=== PATIENT | female | born 1950 | race Caucasian/White ===

== ENCOUNTER 2018-09-09 09:28 | Inpatient (IN) ==
[2018-09-09] MEDS ORDERED: 0.9 % SODIUM CHLORIDE 1,000 ML IV ONE ×3 (09:36→10:26)
--- NOTE | 2018-09-09 09:54 | Emergency Department Note ---
GI Bleed HPI - General Chief complaint: Rectal Bleed Stated complaint: Rectal bleed Time Seen by Provider: 09/09/18 09:42 Source: patient, family Mode of arrival: wheelchair Limitations: no limitations - History of Present Illness HPI Narrative: This patient has had some nausea vomiting for the last day and started having rectal bleeding about 5 AM this morning. She thought it was a lot she thought she felt dizzy and initial blood pressure in the emergency room was 67 systolic. However repeat is much higher than that. She has mild abdominal discomfort in the pelvic region. Has never had any GI bleeding or GI problems in the past. She is not on blood thinners. MD complaint: gross hematochezia Onset (ago): hour(s) Consistency: intermittent Severity: moderate Improves with: none Worsens with: none Associated symptoms: Reports: abdominal pain, nausea, vomiting Treatments Prior to Arrival: none - Related Data Home Medications Medication Instructions Recorded Confirmed albuterol sulfate HFA 90 2 inh INHALATION ONCE PRN g 07/28/17 09/09/18 mcg/actuation aerosol inhaler metronidazole 0.75 % topical cream 1 applic TOPICAL BID PRN 07/28/17 09/09/18 triamcinolone acetonide 0.1 % 1 applic TOPICAL ONCE PRN g 07/28/17 09/09/18 topical cream Previous Rx's Medication Instructions Recorded cyclobenzaprine 10 mg tablet 10 mg PO BID #180 tab 06/14/18 lisinopril 20 1 tab PO QDAY #90 tab 06/14/18 mg-hydrochlorothiazide 12.5 mg tablet metoprolol succinate ER 25 mg 25 mg PO QDAY #90 tab 06/14/18 tablet,extended release 24 hr omeprazole 20 mg capsule,delayed 20 mg PO QDAY #90 cap 06/14/18 release oxybutynin chloride 5 mg tablet 5 mg PO TID #270 tab 06/14/18 tramadol 50 mg tablet 50 mg PO QID PRN #112 tab 06/14/18 Allergies Allergy/AdvReac Type Severity Reaction Status Date / Time codeine Allergy Unknown Anaphylaxis Verified 09/09/18 09:28 morphine Allergy Unknown Anaphylaxis Verified 09/09/18 09:28 Penicillins Allergy Unknown Anaphylaxis Verified 09/09/18 09:28 Sulfa (Sulfonamide Allergy Unknown Diarrhea, Verified 09/09/18 09:28 Antibiotics) vomiting, itching Review of Systems All systems ED: reviewed and negative except as stated. Past Medical History - Past Medical History [facility] Narrative: Medical History (Last Reviewed 08/31/18 @ 10:16 by Fabienne Oquendo PA-C) Esophageal stricture (Chronic) Lumbar radicular pain (Chronic) Thyroid disease (Chronic ~1954) Joint pain (Chronic) Insomnia (Chronic ~1988) Hyperlipidemia (Chronic ~1995) Hypertension, essential (Chronic ~2008) Hepatitis A (Chronic ~1976) Gallbladder problem (Chronic ~2000) Muscle pain (Chronic ~1997) Lung disorder (Chronic ~2004) Arthritis (Chronic ~1999) Anxiety (Chronic) Acid reflux (Chronic ~2011) Past Surgical History (Last Reviewed 08/31/18 @ 10:16 by Fabienne Oquendo PA-C) H/O colonoscopy (Chronic ~2008) H/O total knee replacement (Chronic ~2004) History of cholecystectomy (Chronic ~2000) History of esophageal dilatation (Chronic 11/20/17) History of surgery (Chronic ~1987) Hx of tonsillectomy (Chronic ~1958) Family History (Last Reviewed 08/31/18 @ 10:16 by Fabienne Oquendo PA-C) Mother Arthritis Breast cancer Father Colon cancer Heart attack Grandfather Colon cancer - Social History smoking status: Former smoker Physical Exam Limitations: no limitations General appearance: alert Head: atraumatic Eye: Present: normal appearance ENT: normal exam Neck: Present: normal inspection Chest: Present: normal inspection Respiratory: Present: normal lung sounds bilaterally Cardiovascular: Present: regular rate, normal rhythm, normal heart sounds Abdominal: Present: soft, tenderness. Absent: distention, guarding, rebound, rigidity Abdominal tenderness: Present: diffuse, mild Rectal: Present: normal inspection, normal rectal tone, other (There was minimal blood on rectal exam. But it was bright red.) Neurological: Present: alert Psychiatric: Present: normal affect Skin: Present: warm, dry, intact Course Vital Signs Temperature 97.8 F 09/09/18 09:29 Pulse Rate 104 H 09/09/18 09:29 Respiratory Rate 20 09/09/18 09:29 Blood Pressure 67/55 09/09/18 09:29 Pulse Oximetry (%) 90 09/09/18 09:29 Temperature 97.8 F 09/09/18 09:29 Pulse Rate 95 H 09/09/18 12:16 Respiratory Rate 18 09/09/18 12:16 Blood Pressure 130/58 09/09/18 13:02 Pulse Oximetry (%) 100 09/09/18 12:16 GI Bleed - [facility] Narrative Medical decision making narrative: CT scan is consistent with segmental colitis in the descending and sigmoid colon. She was not anemic. She did have evidence of dehydration. Blood pressure came up into the 130 range after 3 L of fluid and remain there and she remained much more stable. We treated her with Levaquin and Flagyl and she will be admitted to the hospital by Dr. Sue. - Lab Data Lab results reviewed: Yes I reviewed the patient's lab results. Result diagrams: 09/09/18 09:47 09/09/18 09:47 Lab Results 09/09/18 09/09/18 09/09/18 Range/Units 09:47 09:47 12:07 WBC 26.6 H (4.5-11.0) K/mcL RBC 4.61 (4.00-5.20) M/mcL Hgb 12.8 (12.0-15.0) g/dL Hct 39.2 (36.0-48.0) % POC Hct 42.0 (36.0-48.0) % MCV 85.0 (80.0-100.0) fL MCH 27.8 (26.0-34.0) pg MCHC 32.7 (31.0-36.0) g/dL RDW 14.9 H (11.5-14.5) % Plt Count 263 (140-440) K/mcL MPV 7.1 L (7.4-10.4) fL Gran % 91.1 H (38.0-78.0) % Lymph % (Auto) 2.5 L (15.5-49.0) % [place] % (Auto) 6.4 (1.0-12.0) % Eos % (Auto) 0 (0.0-7.0) % Baso % (Auto) 0 (0.0-2.0) % Gran # 24.3 H (1.8-8.0) K/mcL Lymph # (Auto) 0.7 L (1.5-4.8) K/mcL [place] # (Auto) 1.7 H (0.1-0.9) K/mcL Eos # (Auto) 0 (0.0-0.7) K/mcL Baso # (Auto) 0 (0.0-0.3) K/mcL VBG Lactic Acid 2.5 H (0.5-2.0) mmol/L POC Sodium 136 (133-145) mmol/L Sodium 136 (133-145) mmol/L POC Potassium 4.3 (3.3-5.1) mmol/L Potassium 4.5 (3.3-5.1) mmol/L POC Chloride 105 (96-108) mmol/L Chloride 101 (96-108) mmol/L Carbon Dioxide 16 L (22-30) mmol/L POC Total CO2 18 L (22-30) mmol/L Anion Gap 19.0 H (8-16) POC BUN 34 H (8-23) mg/dl BUN 35 H (8-23) mg/dl Creatinine 2.1 H (0.6-1.1) mg/dl POC Creatinine 2.0 H (0.6-1.1) mg/dl GFR Calculation 24 Glucose 171 H (70-105) mg/dL POC Glucose 174 H (70-105) mg/dL Calcium 8.9 (8.6-10.4) mg/dl POC WB Ioniz Calcium 1.12 L (1.16-1.32) mmol/L Total Bilirubin 0.4 (0.0-1.0) mg/dL AST 22 (0-37) U/l ALT 16 (0-40) U/l Alkaline Phosphatase 99 (39-117) U/L Total Protein 7.0 (5.9-8.4) gm/dL Albumin 3.3 (3.2-5.2) gm/dL Globulin 3.7 (2.2-3.7) gm/dL Albumin/Globulin Ratio 0.9 L (1.0-2.3) - Radiology Data Radiology results reviewed: Yes I reviewed the patient's radiology results. Disposition Pt seen by [employer]/PA only: No Clinical Impression: Hematochezia, Colitis Disposition: Xfer As Inpt ([facility]) Condition: Good Referrals: Yovanny Hughes DO [Primary Care Provider] - Time of Disposition: 13:13
[2018-09-09 10:46] LABS: ALT/SGPT 16 U/l (0-40); Albumin 3.3 gm/dL (3.2-5.2); Albumin/Globulin Ratio 0.9 (1.0-2.3); Alkaline Phosphatase 99 U/L (39-117); Blood Urea Nitrogen 35 mg/dl (8-23)
[2018-09-09 11:01] LABS: Basophils # (Auto) 0 K/mcL (0.0-0.3); Basophils % (Auto) 0 % (0.0-2.0); Eosinophils # (Auto) 0 K/mcL (0.0-0.7); Eosinophils % (Auto) 0 % (0.0-7.0); Granulocytes % (Auto) 91.1 % (38.0-78.0); Lymphocytes # (Auto) 0.7 K/mcL (1.5-4.8); Lymphocytes % (Auto) 2.5 % (15.5-49.0); Mean Corpuscular HGB Conc 32.7 g/dL (31.0-36.0); Mean Corpuscular Hemoglobin 27.8 pg (26.0-34.0); Monocytes # (Auto) 1.7 K/mcL (0.1-0.9); Monocytes % (Auto) 6.4 % (1.0-12.0); Platelet Count 263 K/mcL (140-440); RBC 4.61 M/mcL (4.00-5.20); Red Cell Distribution Width 14.9 % (11.5-14.5)
[2018-09-09] MEDS ORDERED: ONDANSETRON 4 MG/2 ML VIAL IV ONE ×2 (11:24→12:41)
--- NOTE | 2018-09-09 12:39 | Cat Scan Report ---
CLINICAL INFORMATION: Rectal bleeding. Pain. COMPARISON: None. TECHNIQUE: Axial images were obtained through the abdomen and pelvis. Sagittally and coronally reformatted images. Patient's creatinine was elevated to 2.0 and intravenous contrast material was not administered FINDINGS: Distal descending colon and sigmoid colon are normal. There is pericolonic inflammatory change. The thickness of the colonic wall is not well assessed. R a few diverticuli. Findings may be due to diverticulitis but appearance suggests segmental colitis. The proximal descending colon, transverse colon, ascending colon are negative. There is no detectable colonic mass. No significant free intraperitoneal fluid. There is no intra-abdominal abscess. No pneumoperitoneum. No biliary or portal venous gas. Lung bases are negative. No parenchymal infiltrate or mass. No pleural fluid. No pericardial fluid. Liver is negative to the limits of noncontrast enhanced examination. Normal smooth liver contour. There are surgical clips in the gallbladder fossa. No dilated bile ducts. Negative spleen. No splenomegaly. Pancreas is negative. No pancreatic mass. No evidence of pancreatitis. Negative adrenal glands. There is probably a 6 mm fat-containing adenoma on the left adrenal gland. Kidneys are negative. No hydronephrosis. No renal calculi. No ureteral stone. No bladder calculus. Uterus is present. No adnexal mass. Lumbar spine, sacrum, pelvis are negative. Hips are negative. No retroperitoneal or mesenteric lymphadenopathy. There is calcification of the abdominal aorta. No abdominal aortic aneurysm. IMPRESSION: 1. Abnormal descending colon and sigmoid colon. There are scattered diverticula in this may be due to diverticulitis. Segmental colitis is also possible. 2. No detectable colonic mass. No intra-abdominal abscess. The exam was performed using radiation dose optimization techniques including, but not limited to, automated exposure control, adjustment of the mA and/or kV according to patient size and use of iterative reconstruction technique. Interpreted and Authenticated by: Yovanny Diaz 09/09/18
[2018-09-09] MEDS ORDERED: metroNIDAZOLE 500 MG/100 ML BAG IV ONE (12:41)
[2018-09-09] MEDS ORDERED: LEVOFLOXACIN 750 MG/150 ML BAG IV ONE (12:41)
[2018-09-09] MEDS ORDERED: 0.9 % SODIUM CHLORIDE 1,000 ML IV SCH (14:15)
[2018-09-09] MEDS: 0.9 % SODIUM CHLORIDE 1,000 ML IV SCH ×2 (14:30→23:06)
[2018-09-09] MEDS: PANTOPRAZOLE 40 MG VIAL IV SCH (15:56)
[2018-09-09] MEDS: metroNIDAZOLE 500 MG/100 ML BAG IV SCH ×3 (17:01→23:26)
--- NOTE | 2018-09-09 17:06 | General Surg History&Physical ---
History of Present Illness Patient information: Note initiated : 09/09/18 at 5:02 pm Service Date, if different from initiated Date: [] Patient: Sharla Villela a 68 y/o F admitted on 09/09/18 for Colitis. Chief Complaint: [] HPI: Ms. Villela is a 68 year old F admitted with nausea vomiting diarrhea and dehydration with possible sepsis. The patient states that her entire family which is an extended family of 6 has had nausea vomiting diarrhea. Her grandchildren and her daughter and son-in-law and her all have had nausea vomiting diarrhea. She did well until yesterday when she started to feel ill. She became much worse at work and had to return home. She had multiple episodes of nausea and vomiting and then had diarrhea which initially was regular stools and then became bloody. She estimates that she had at least 6 or 7 episodes of emesis and 10 bloody bowel movements. She was seen in the emergency room where she was noted to be hypotensive with blood pressure in the 60s to 80 range systolic.. She had mild tachycardia. She was treated with IV hydration and her blood pressure returned to normal levels. Her lactate was 2.6. Patient has not had similar episodes in the past. She has not had any GI problems that she can remember. CT suggests segmental inflammation of the descending and sigmoid colon suggestive of segmental colitis but this is probably infectious in origin. She had sharp crampy abdominal pain which is improving at this time. She has received 3 L of normal saline and her blood pressure and pulse are now stable. Review of Systems - Gastrointestinal abdominal pain, change in bowel habits, cramping, diarrhea, dysphagia, hematochezia, loose stools, nausea, vomiting - Musculoskeletal arthralgias, back pain, myalgias, other (joint pain with sciatica) Past History Past medical history: Hypothyroidism Asthma Hypertension Past surgical history: Right total hip arthroplasty in July 20 Bilateral total knee arthroplasty Right ankle surgery Bilateral hand surgeries including carpal tunnel release Past family history: Breast cancer Colon cancer Coronary artery disease Past social history: Occasional alcohol use Former smoker Denies drug use Medications and Allergies Home Medications Medication Instructions Recorded Confirmed Type albuterol sulfate HFA 90 2 inh INHALATION ONCE PRN g 07/28/17 09/09/18 History mcg/actuation aerosol inhaler metronidazole 0.75 % topical cream 1 applic TOPICAL BID PRN 07/28/17 09/09/18 History triamcinolone acetonide 0.1 % 1 applic TOPICAL ONCE PRN g 07/28/17 09/09/18 History topical cream cyclobenzaprine 10 mg tablet 10 mg PO BID #180 tab 06/14/18 09/09/18 Rx lisinopril 20 1 tab PO QDAY #90 tab 06/14/18 09/09/18 Rx mg-hydrochlorothiazide 12.5 mg tablet metoprolol succinate ER 25 mg 25 mg PO QDAY #90 tab 06/14/18 09/09/18 Rx tablet,extended release 24 hr omeprazole 20 mg capsule,delayed 20 mg PO QDAY #90 cap 06/14/18 09/09/18 Rx release oxybutynin chloride 5 mg tablet 5 mg PO TID #270 tab 06/14/18 09/09/18 Rx tramadol 50 mg tablet 50 mg PO QID PRN #112 tab 06/14/18 09/09/18 Rx Allergies Allergy/AdvReac Type Severity Reaction Status Date / Time codeine Allergy Unknown Anaphylaxis Verified 09/09/18 09:28 morphine Allergy Unknown Anaphylaxis Verified 09/09/18 09:28 Penicillins Allergy Unknown Anaphylaxis Verified 09/09/18 09:28 Sulfa (Sulfonamide Allergy Unknown Diarrhea, Verified 09/09/18 09:28 Antibiotics) vomiting, itching Exam Temp Pulse Resp BP Pulse Ox 97.8 F 86 18 108/59 94 09/09/18 14:25 09/09/18 14:25 09/09/18 14:25 09/09/18 14:25 09/09/18 14:25 - General physical appearance well developed, well nourished, no distress - Eyes PERRL, normal ocular movement - ENT normal pinna, normal nares, normal mucosa, no hearing loss, no congestion - Head Head exam IM: Present: atraumatic, normal inspection, normocephalic - Neck no masses, no bruits, trachea midline, no lymphadenopathy, no venous distension - Cardiovascular Cardiovascular exam IM: Present: normal rate and rhythm, RRR, +S1, +S2, systolic murmur. Absent: JVD, tachycardia Type of murmur IM: Present: systolic Intensity IM: 2/6 - Respiratory normal expansion, normal respiratory effort, clear to auscultation - Abdomen Abdomen: Present: soft, tender (diffusely tender without guarding; active bowel sounds; mild distention), bowel sounds Hernia: Present: none - Genitourinary Present: normal external genitalia - Integumentary Present: no rash, no growths, no abnormal pigmentation - Neurologic Present: normal coordination, normal sensation - Musculoskeletal Present: normal gait, normal posture, other (operative changes bilateral knees and right hip) - Psychiatric Present: oriented to time, oriented to person, oriented to place, speech is normal, memory intact Assessment and Plan (1) Acute infectious diarrhea Continue Levaquin and metronidazole IV Continue IV hydration Stool cultures for routine pathogens Stool tests for C. difficile Status: Acute (2) Hematochezia Monitor hemoglobin and hematocrit closely Status: Acute (3) Dehydration, moderate Continue IV hydration Follow-up evaluation of renal status Status: Acute (4) Hypertension, essential Hold antihypertensive medications Status: Chronic
[2018-09-09] MEDS ORDERED: ALBUTEROL SULFATE 1 PUFF INHALER INH PRN (17:17)
[2018-09-09 20:40] LABS: Basophils # (Auto) 0 K/mcL (0.0-0.3); Basophils % (Auto) 0 % (0.0-2.0); Eosinophils # (Auto) 0 K/mcL (0.0-0.7); Eosinophils % (Auto) 0 % (0.0-7.0); Granulocytes % (Auto) 89.5 % (38.0-78.0); Lymphocytes # (Auto) 0.8 K/mcL (1.5-4.8); Lymphocytes % (Auto) 4.7 % (15.5-49.0); Mean Cell Volume 85.1 fL (80.0-100.0); Mean Corpuscular HGB Conc 32.8 g/dL (31.0-36.0); Mean Corpuscular Hemoglobin 27.9 pg (26.0-34.0); Monocytes % (Auto) 5.8 % (1.0-12.0); Platelet Count 171 K/mcL (140-440); RBC 3.81 M/mcL (4.00-5.20)
[2018-09-09] MEDS: ONDANSETRON 4 MG/2 ML VIAL IV PRN (20:44)
[2018-09-09] MEDS: ACETAMINOPHEN 1,000 MG/100 ML BOTTLE IV PRN (20:45)
[2018-09-09 20:55] LABS: ALT/SGPT 13 U/l (0-40); Albumin 2.7 gm/dL (3.2-5.2); Albumin/Globulin Ratio 0.8 (1.0-2.3); Alkaline Phosphatase 90 U/L (39-117); Bilirubin,Direct < 0.2 mg/dL (0.0-0.3); Blood Urea Nitrogen 29 mg/dl (8-23); Gamma Glutamyl Transpeptidase 14 U/L (5-36); Uric Acid 7.8 mg/dL (2.5-8.0)
[2018-09-09] MEDS: 0.9 % SODIUM CHLORIDE 10 ML SYRINGE IV SCH (20:55)
[2018-09-10] MEDS: ONDANSETRON 4 MG/2 ML VIAL IV PRN ×6 (02:32→23:31)
[2018-09-10] MEDS: ACETAMINOPHEN 1,000 MG/100 ML BOTTLE IV PRN ×3 (02:33→19:48)
[2018-09-10] MEDS: metroNIDAZOLE 500 MG/100 ML BAG IV SCH ×4 (06:02→23:59)
[2018-09-10] MEDS: 0.9 % SODIUM CHLORIDE 10 ML SYRINGE IV SCH ×3 (06:03→23:31)
[2018-09-10] MEDS: PANTOPRAZOLE 40 MG VIAL IV SCH ×2 (06:51→17:19)
[2018-09-10 07:00] LABS: Basophils # (Auto) 0 K/mcL (0.0-0.3); Basophils % (Auto) 0 % (0.0-2.0); Eosinophils # (Auto) 0 K/mcL (0.0-0.7); Eosinophils % (Auto) 0.3 % (0.0-7.0); Granulocytes % (Auto) 85.4 % (38.0-78.0); Lymphocytes # (Auto) 0.9 K/mcL (1.5-4.8); Lymphocytes % (Auto) 7.1 % (15.5-49.0); Mean Cell Volume 85.9 fL (80.0-100.0); Mean Corpuscular HGB Conc 32.9 g/dL (31.0-36.0); Mean Corpuscular Hemoglobin 28.3 pg (26.0-34.0); Monocytes # (Auto) 0.9 K/mcL (0.1-0.9); Monocytes % (Auto) 7.2 % (1.0-12.0); Platelet Count 159 K/mcL (140-440); RBC 3.61 M/mcL (4.00-5.20)
[2018-09-10 07:24] LABS: ALT/SGPT 11 U/l (0-40); Albumin 2.6 gm/dL (3.2-5.2); Albumin/Globulin Ratio 0.9 (1.0-2.3); Alkaline Phosphatase 80 U/L (39-117); Bilirubin,Direct < 0.2 mg/dL (0.0-0.3); Blood Urea Nitrogen 26 mg/dl (8-23); Gamma Glutamyl Transpeptidase 10 U/L (5-36); Uric Acid 7.2 mg/dL (2.5-8.0)
[2018-09-10] MEDS: 0.9 % SODIUM CHLORIDE 1,000 ML IV SCH ×3 (08:17→17:09)
--- NOTE | 2018-09-10 15:48 | General Surgery Progress Note ---
Subjective Patient reports: feels better, pain is less, flatus, no bowel movement, nausea, afebrile Narrative: Note initiated : 09/10/18 at 3:46 pm Service Date, if different from initiated Date: [] Patient: Sharla Villela 68 y/o F admitted on 09/09/18 for Colitis. Chief Complaint: [Patient feels that she still has nausea. Her abdominal pain is significantly better. She's had some flatus but no significant bowel movement. She is afebrile. Her repeat lactate was 1. Her BUN is down to 26 and creatinine at 1.3. White blood count 12.6 hemoglobin 10.2. Patient complains of insomnia. Her urinary output is excellent.] Objective Temp Pulse Resp BP Pulse Ox 97.7 F 90 18 118/64 94 09/10/18 12:00 09/10/18 07:05 09/10/18 12:00 09/10/18 12:00 09/10/18 12:00 - Additional Data Intake & Output - Last 24 hours: Intake & Output 09/08/18 09/09/18 09/10/18 09/11/18 05:59 05:59 05:59 05:59 Intake Total 5680 / 5680 200 / 200 Output Total 1075 / 1075 Balance 4605 / 4605 200 / 200 Weight 289 lb 14.4 oz 289 lb 14.4 oz - General physical appearance well developed, well nourished, moderate distress, moderate pain - Eyes PERRL, normal ocular movement - ENT normal pinna, normal nares, normal mucosa, no hearing loss, no congestion - Neck no masses, no bruits, trachea midline, no lymphadenopathy, no venous distension - Respiratory normal expansion, normal respiratory effort, clear to auscultation - Cardiovascular Cardiovascular exam: Present: normal rate and rhythm, RRR, +S1, +S2. Absent: JVD, tachycardia - Abdomen tender (mild diffuse tenderness persists; active bowel sounds; less clotting than on yesterday), bowel sounds (present), surgical scars (none), masses (none) - Integumentary no rash, no growths, no abnormal pigmentation - Neurologic normal coordination, normal sensation - Musculoskeletal normal gait, normal posture - Psychiatric oriented to time, oriented to person, oriented to place, speech is normal, memory intact - Labs 09/10/18 05:42 09/10/18 05:42 Diabetes panel 09/09/18 09/10/18 Range/Units 20:00 05:42 Sodium 136 136 (133-145) mmol/L Potassium 4.4 4.2 (3.3-5.1) mmol/L Chloride 104 105 (96-108) mmol/L Carbon Dioxide 19 L 19 L (22-30) mmol/L BUN 29 H 26 H (8-23) mg/dl Creatinine 1.4 H 1.3 H (0.6-1.1) mg/dl Glucose 100 85 (70-105) mg/dL Calcium 8.3 L 8.3 L (8.6-10.4) mg/dl AST 19 15 (0-37) U/l ALT 13 11 (0-40) U/l Alkaline Phosphatase 90 80 (39-117) U/L Total Protein 6.0 5.6 L (5.9-8.4) gm/dL Albumin 2.7 L 2.6 L (3.2-5.2) gm/dL Triglycerides 83 66 (<150) mg/dl Calcium panel 09/09/18 09/10/18 Range/Units 20:00 05:42 Calcium 8.3 L 8.3 L (8.6-10.4) mg/dl Phosphorus 2.8 2.7 (2.7-4.5) mg/dL Albumin 2.7 L 2.6 L (3.2-5.2) gm/dL Pituitary panel 09/09/18 09/10/18 Range/Units 20:00 05:42 Sodium 136 136 (133-145) mmol/L Potassium 4.4 4.2 (3.3-5.1) mmol/L Chloride 104 105 (96-108) mmol/L Carbon Dioxide 19 L 19 L (22-30) mmol/L BUN 29 H 26 H (8-23) mg/dl Creatinine 1.4 H 1.3 H (0.6-1.1) mg/dl Glucose 100 85 (70-105) mg/dL Calcium 8.3 L 8.3 L (8.6-10.4) mg/dl Adrenal panel 09/09/18 09/10/18 Range/Units 20:00 05:42 Sodium 136 136 (133-145) mmol/L Potassium 4.4 4.2 (3.3-5.1) mmol/L Chloride 104 105 (96-108) mmol/L Carbon Dioxide 19 L 19 L (22-30) mmol/L BUN 29 H 26 H (8-23) mg/dl Creatinine 1.4 H 1.3 H (0.6-1.1) mg/dl Glucose 100 85 (70-105) mg/dL Calcium 8.3 L 8.3 L (8.6-10.4) mg/dl Total Bilirubin 0.4 0.3 (0.0-1.0) mg/dL AST 19 15 (0-37) U/l ALT 13 11 (0-40) U/l Alkaline Phosphatase 90 80 (39-117) U/L Total Protein 6.0 5.6 L (5.9-8.4) gm/dL Albumin 2.7 L 2.6 L (3.2-5.2) gm/dL Assessment and Plan (1) Acute infectious diarrhea Status: Acute Current Visit: Yes (2) Hematochezia Status: Acute Assessment and plan: Significantly improved since admission Current Visit: Yes (3) Dehydration, moderate Status: Acute Assessment and plan: Significant improvement with hydration Current Visit: Yes (4) Hypertension, essential Status: Chronic Assessment and plan: Continue to hold antihypertensives Current Visit: No - Time Spent With Patient Total time spent is greater than 50% in coordination of care (as documented) at patient's floor/unit and/or counseling patient:
[2018-09-10] MEDS: ALPRAZolam 0.5 MG TABLET PO PRN (20:18)
[2018-09-11] MEDS: ACETAMINOPHEN 1,000 MG/100 ML BOTTLE IV PRN ×2 (04:25→18:56)
[2018-09-11] MEDS: ONDANSETRON 4 MG/2 ML VIAL IV PRN ×2 (04:25→18:57)
[2018-09-11] MEDS: 0.9 % SODIUM CHLORIDE 1,000 ML IV SCH ×3 (05:45→20:51)
[2018-09-11] MEDS: 0.9 % SODIUM CHLORIDE 10 ML SYRINGE IV SCH ×3 (05:45→23:29)
[2018-09-11] MEDS: metroNIDAZOLE 500 MG/100 ML BAG IV SCH ×4 (05:45→23:58)
[2018-09-11 06:15] LABS: Basophils # (Auto) 0 K/mcL (0.0-0.3); Basophils % (Auto) 0.1 % (0.0-2.0); Eosinophils # (Auto) 0.1 K/mcL (0.0-0.7); Eosinophils % (Auto) 0.9 % (0.0-7.0); Granulocytes % (Auto) 89.1 % (38.0-78.0); Lymphocytes # (Auto) 0.8 K/mcL (1.5-4.8); Lymphocytes % (Auto) 5.5 % (15.5-49.0); Mean Cell Volume 86.8 fL (80.0-100.0); Mean Corpuscular HGB Conc 32.5 g/dL (31.0-36.0); Mean Corpuscular Hemoglobin 28.2 pg (26.0-34.0); Monocytes # (Auto) 0.6 K/mcL (0.1-0.9); Monocytes % (Auto) 4.4 % (1.0-12.0); Platelet Count 213 K/mcL (140-440); RBC 4.12 M/mcL (4.00-5.20); Red Cell Distribution Width 15.2 % (11.5-14.5)
[2018-09-11 06:29] LABS: ALT/SGPT 9 U/l (0-40); Albumin 2.5 gm/dL (3.2-5.2); Albumin/Globulin Ratio 0.8 (1.0-2.3); Alkaline Phosphatase 87 U/L (39-117); Bilirubin,Direct < 0.2 mg/dL (0.0-0.3); Blood Urea Nitrogen 20 mg/dl (8-23); Gamma Glutamyl Transpeptidase 11 U/L (5-36); Uric Acid 6.8 mg/dL (2.5-8.0)
[2018-09-11] MEDS: PANTOPRAZOLE 40 MG VIAL IV SCH ×2 (07:34→16:32)
[2018-09-11] MEDS: LEVOFLOXACIN 750 MG/150 ML BAG IV SCH (09:51)
--- NOTE | 2018-09-11 14:04 | General Surgery Progress Note ---
Subjective Patient reports: feels better, still having pain, pain is less, nausea, vomiting , afebrile Narrative: Note initiated : 09/11/18 at 2:02 pm Service Date, if different from initiated Date: [] Patient: Sharla Villela 68 y/o F admitted on 09/09/18 for Colitis. Chief Complaint: [Patient is doing well but she still has significant nausea. She has had some bloody bowel movements which are very small.] Objective Temp Pulse Resp BP Pulse Ox 98.9 F 99 H 20 114/77 97 09/11/18 12:00 09/11/18 08:00 09/11/18 12:00 09/11/18 12:00 09/11/18 12:00 - Additional Data Intake & Output - Last 24 hours: Intake & Output 09/09/18 09/10/18 09/11/18 09/12/18 05:59 05:59 05:59 05:59 Intake Total 5680 / 5680 2060 / 2060 100 / 100 Output Total 1075 / 1075 1155 / 1155 Balance 4605 / 4605 905 / 905 100 / 100 Weight 289 lb 14.4 oz 287 lb 8 oz - General physical appearance well developed, well nourished, no distress - Eyes PERRL, normal ocular movement - ENT normal pinna, normal nares, normal mucosa, no hearing loss, no congestion - Neck no masses, no bruits, trachea midline, no lymphadenopathy, no venous distension - Respiratory normal expansion, normal respiratory effort, clear to auscultation - Cardiovascular Cardiovascular exam: Present: normal rate and rhythm, RRR, +S1, +S2. Absent: JVD, tachycardia - Abdomen bowel sounds (present), surgical scars (none), masses (none) - Integumentary no rash, no growths, no abnormal pigmentation - Neurologic normal coordination, normal sensation - Musculoskeletal normal gait, normal posture - Psychiatric oriented to time, oriented to person, oriented to place, speech is normal, memory intact - Labs 09/11/18 04:42 09/11/18 04:42 Diabetes panel 09/11/18 Range/Units 04:42 Sodium 132 L (133-145) mmol/L Potassium 4.7 (3.3-5.1) mmol/L Chloride 102 (96-108) mmol/L Carbon Dioxide 16 L (22-30) mmol/L BUN 20 (8-23) mg/dl Creatinine 1.1 (0.6-1.1) mg/dl Glucose 78 (70-105) mg/dL Calcium 8.5 L (8.6-10.4) mg/dl AST 12 (0-37) U/l ALT 9 (0-40) U/l Alkaline Phosphatase 87 (39-117) U/L Total Protein 5.8 L (5.9-8.4) gm/dL Albumin 2.5 L (3.2-5.2) gm/dL Triglycerides 65 (<150) mg/dl Calcium panel 09/11/18 Range/Units 04:42 Calcium 8.5 L (8.6-10.4) mg/dl Phosphorus 2.6 L (2.7-4.5) mg/dL Albumin 2.5 L (3.2-5.2) gm/dL Pituitary panel 09/11/18 Range/Units 04:42 Sodium 132 L (133-145) mmol/L Potassium 4.7 (3.3-5.1) mmol/L Chloride 102 (96-108) mmol/L Carbon Dioxide 16 L (22-30) mmol/L BUN 20 (8-23) mg/dl Creatinine 1.1 (0.6-1.1) mg/dl Glucose 78 (70-105) mg/dL Calcium 8.5 L (8.6-10.4) mg/dl Adrenal panel 09/11/18 Range/Units 04:42 Sodium 132 L (133-145) mmol/L Potassium 4.7 (3.3-5.1) mmol/L Chloride 102 (96-108) mmol/L Carbon Dioxide 16 L (22-30) mmol/L BUN 20 (8-23) mg/dl Creatinine 1.1 (0.6-1.1) mg/dl Glucose 78 (70-105) mg/dL Calcium 8.5 L (8.6-10.4) mg/dl Total Bilirubin 0.2 (0.0-1.0) mg/dL AST 12 (0-37) U/l ALT 9 (0-40) U/l Alkaline Phosphatase 87 (39-117) U/L Total Protein 5.8 L (5.9-8.4) gm/dL Albumin 2.5 L (3.2-5.2) gm/dL Assessment and Plan (1) Acute infectious diarrhea Status: Acute Current Visit: Yes (2) Hematochezia Status: Acute Assessment and plan: Significantly improved since admission Current Visit: Yes (3) Dehydration, moderate Status: Acute Assessment and plan: Significant improvement with hydration Current Visit: Yes (4) Hypertension, essential Status: Chronic Assessment and plan: Continue to hold antihypertensives Current Visit: No - Time Spent With Patient Total time spent is greater than 50% in coordination of care (as documented) at patient's floor/unit and/or counseling patient:
[2018-09-11] MEDS: ALPRAZolam 0.5 MG TABLET PO PRN (21:22)
[2018-09-12] MEDS: ACETAMINOPHEN 1,000 MG/100 ML BOTTLE IV PRN (03:46)
[2018-09-12] MEDS: metroNIDAZOLE 500 MG/100 ML BAG IV SCH ×3 (05:07→17:37)
[2018-09-12 05:32] LABS: Basophils # (Auto) 0 K/mcL (0.0-0.3); Basophils % (Auto) 0.3 % (0.0-2.0); Eosinophils # (Auto) 0.2 K/mcL (0.0-0.7); Eosinophils % (Auto) 2.1 % (0.0-7.0); Granulocytes % (Auto) 80.9 % (38.0-78.0); Lymphocytes # (Auto) 0.8 K/mcL (1.5-4.8); Lymphocytes % (Auto) 10.2 % (15.5-49.0); Mean Cell Volume 86.1 fL (80.0-100.0); Mean Corpuscular HGB Conc 32.5 g/dL (31.0-36.0); Monocytes # (Auto) 0.5 K/mcL (0.1-0.9); Monocytes % (Auto) 6.5 % (1.0-12.0); Platelet Count 190 K/mcL (140-440); RBC 3.69 M/mcL (4.00-5.20); Red Cell Distribution Width 14.9 % (11.5-14.5)
[2018-09-12 05:49] LABS: ALT/SGPT 7 U/l (0-40); Albumin 2.2 gm/dL (3.2-5.2); Albumin/Globulin Ratio 0.8 (1.0-2.3); Alkaline Phosphatase 74 U/L (39-117); Bilirubin,Direct < 0.2 mg/dL (0.0-0.3); Blood Urea Nitrogen 17 mg/dl (8-23); Gamma Glutamyl Transpeptidase 11 U/L (5-36)
[2018-09-12] MEDS: PANTOPRAZOLE 40 MG VIAL IV SCH ×2 (06:46→17:32)
[2018-09-12] MEDS: 0.9 % SODIUM CHLORIDE 10 ML SYRINGE IV SCH ×3 (06:49→20:05)
[2018-09-12] MEDS: 0.9 % SODIUM CHLORIDE 1,000 ML IV SCH ×2 (08:32→17:44)
[2018-09-12] MEDS ORDERED: MAGNESIUM SULFATE 32.48 MEQ in DEXTROSE 5% IN WATER 50 ML IV ONE (14:09)
[2018-09-12] MEDS ORDERED: POTASSIUM PHOSPHATE 40 MEQ in DEXTROSE 5% IN WATER 500 ML IV ONE (14:10)
--- NOTE | 2018-09-12 14:14 | General Surgery Progress Note ---
Subjective Patient reports: feels better, still having pain, pain is less, flatus, no bowel movement, afebrile Narrative: Note initiated : 09/12/18 at 2:13 pm Service Date, if different from initiated Date: [] Patient: Sharla Villela 68 y/o F admitted on 09/09/18 for Colitis. Chief Complaint: [patient is improved. nausea significantly improved. She has flatus but no bowel movement. Abdominal pain better.] Objective Temp Pulse Resp BP Pulse Ox 98.2 F 88 14 128/89 94 09/12/18 12:00 09/12/18 12:00 09/12/18 12:00 09/12/18 12:00 09/12/18 12:00 - Additional Data Intake & Output - Last 24 hours: Intake & Output 09/10/18 09/11/18 09/12/18 09/13/18 05:59 05:59 05:59 05:59 Intake Total 5680 / 5680 2060 / 2060 3090 / 3090 100 / 100 Output Total 1075 / 1075 1155 / 1155 1100 / 1100 Balance 4605 / 4605 905 / 905 1989 / 1989 100 / 100 Weight 289 lb 14.4 oz 287 lb 8 oz 295 lb - General physical appearance well developed, well nourished, no distress - Eyes PERRL, normal ocular movement - ENT normal pinna, normal nares, normal mucosa, no hearing loss, no congestion - Neck no masses, no bruits, trachea midline, no lymphadenopathy, no venous distension - Respiratory normal expansion, normal respiratory effort, clear to auscultation - Cardiovascular Cardiovascular exam: Present: normal rate and rhythm, RRR, +S1, +S2. Absent: JVD, tachycardia - Abdomen tender (moderate upper midline abdominal tenderness; good active bowel sounds), distended ( mild distention of upper abdomen) - Integumentary no rash, no growths, no abnormal pigmentation - Neurologic normal coordination, normal sensation - Musculoskeletal normal gait, normal posture - Psychiatric oriented to time, oriented to person, oriented to place, speech is normal, memory intact - Labs 09/12/18 04:33 09/12/18 04:33 Diabetes panel 09/12/18 Range/Units 04:33 Sodium 137 (133-145) mmol/L Potassium 4.2 (3.3-5.1) mmol/L Chloride 106 (96-108) mmol/L Carbon Dioxide 19 L (22-30) mmol/L BUN 17 (8-23) mg/dl Creatinine 1.0 (0.6-1.1) mg/dl Glucose 63 L (70-105) mg/dL Calcium 8.0 L (8.6-10.4) mg/dl AST 8 (0-37) U/l ALT 7 (0-40) U/l Alkaline Phosphatase 74 (39-117) U/L Total Protein 5.1 L (5.9-8.4) gm/dL Albumin 2.2 L (3.2-5.2) gm/dL Triglycerides 90 (<150) mg/dl Calcium panel 09/12/18 Range/Units 04:33 Calcium 8.0 L (8.6-10.4) mg/dl Phosphorus 2.5 L (2.7-4.5) mg/dL Albumin 2.2 L (3.2-5.2) gm/dL Pituitary panel 09/12/18 Range/Units 04:33 Sodium 137 (133-145) mmol/L Potassium 4.2 (3.3-5.1) mmol/L Chloride 106 (96-108) mmol/L Carbon Dioxide 19 L (22-30) mmol/L BUN 17 (8-23) mg/dl Creatinine 1.0 (0.6-1.1) mg/dl Glucose 63 L (70-105) mg/dL Calcium 8.0 L (8.6-10.4) mg/dl Adrenal panel 09/12/18 Range/Units 04:33 Sodium 137 (133-145) mmol/L Potassium 4.2 (3.3-5.1) mmol/L Chloride 106 (96-108) mmol/L Carbon Dioxide 19 L (22-30) mmol/L BUN 17 (8-23) mg/dl Creatinine 1.0 (0.6-1.1) mg/dl Glucose 63 L (70-105) mg/dL Calcium 8.0 L (8.6-10.4) mg/dl Total Bilirubin < 0.2 (0.0-1.0) mg/dL AST 8 (0-37) U/l ALT 7 (0-40) U/l Alkaline Phosphatase 74 (39-117) U/L Total Protein 5.1 L (5.9-8.4) gm/dL Albumin 2.2 L (3.2-5.2) gm/dL Assessment and Plan (1) Acute infectious diarrhea Status: Acute Assessment and plan: Clinically improved; no stool for culture Start clear liquids Abdominal x-rays in the morning Replace magnesium and phosphorus Current Visit: Yes (2) Hematochezia Status: Acute Assessment and plan: Significantly improved since admission Current Visit: Yes (3) Dehydration, moderate Status: Resolved Assessment and plan: Dehydration resolved Current Visit: Yes (4) Hypertension, essential Status: Chronic Assessment and plan: Continue to hold antihypertensives Current Visit: No - Time Spent With Patient Total time spent is greater than 50% in coordination of care (as documented) at patient's floor/unit and/or counseling patient:
[2018-09-12] MEDS ORDERED: MAGNESIUM SULFATE IN WATER 4 GM/100 ML BAG IV ONE (14:30)
[2018-09-12] MEDS: ALPRAZolam 0.5 MG TABLET PO PRN (22:14)
[2018-09-13] MEDS: metroNIDAZOLE 500 MG/100 ML BAG IV SCH ×4 (01:05→17:21)
[2018-09-13] MEDS: 0.9 % SODIUM CHLORIDE 1,000 ML IV SCH ×3 (04:53→13:45)
[2018-09-13] MEDS: 0.9 % SODIUM CHLORIDE 10 ML SYRINGE IV SCH ×3 (04:56→21:00)
--- NOTE | 2018-09-13 08:29 | XRay Report ---
CLINICAL INFORMATION: Follow-up ileus TECHNIQUE: Supine and upright abdomen COMPARISON: CT scan dated 09/09/2018 FINDINGS: There is gas throughout small and large bowel. Transverse colon measures approximately 6 cm in maximum diameter. Small bowel is dilated to approximately 4 cm in cross-sectional diameter. There are scattered air-fluid levels. There is no pneumoperitoneum. No biliary or portal venous gas. No pneumatosis. Bowel gas pattern is not considered obstructive and is probably secondary to generalized ileus. Etiology of this ileus is not certain. Continued follow-up examinations recommended. IMPRESSION: 1. Distended gas-filled small and large bowel consistent with ileus 2. Follow-up examination recommended 3. No pneumoperitoneum. Interpreted and Authenticated by: Yovanny Diaz 09/13/18
[2018-09-13] MEDS: PANTOPRAZOLE 40 MG VIAL IV SCH ×2 (08:40→17:21)
[2018-09-13] MEDS: LEVOFLOXACIN 750 MG/150 ML BAG IV SCH (08:42)
[2018-09-13] MEDS: ONDANSETRON 4 MG/2 ML VIAL IV PRN (12:33)
[2018-09-13] MEDS ORDERED: IOPAMIDOL 100 ML BOTTLE IV ONE (12:54)
[2018-09-13 14:51] LABS: Basophils # (Auto) 0 K/mcL (0.0-0.3); Basophils % (Auto) 0 % (0.0-2.0); Eosinophils # (Auto) 0.2 K/mcL (0.0-0.7); Eosinophils % (Auto) 2.4 % (0.0-7.0); Granulocytes % (Auto) 79.8 % (38.0-78.0); Lymphocytes # (Auto) 0.7 K/mcL (1.5-4.8); Lymphocytes % (Auto) 9.5 % (15.5-49.0); Mean Cell Volume 84.9 fL (80.0-100.0); Mean Corpuscular HGB Conc 33.2 g/dL (31.0-36.0); Mean Corpuscular Hemoglobin 28.1 pg (26.0-34.0); Monocytes # (Auto) 0.6 K/mcL (0.1-0.9); Monocytes % (Auto) 8.3 % (1.0-12.0); Platelet Count 195 K/mcL (140-440); Red Cell Distribution Width 14.6 % (11.5-14.5)
[2018-09-13 15:25] LABS: ALT/SGPT 12 U/l (0-40); Albumin 2.7 gm/dL (3.2-5.2); Albumin/Globulin Ratio 0.8 (1.0-2.3); Alkaline Phosphatase 80 U/L (39-117); Bilirubin,Direct < 0.2 mg/dL (0.0-0.3); Blood Urea Nitrogen 9 mg/dl (8-23); Gamma Glutamyl Transpeptidase 19 U/L (5-36); Uric Acid 7.1 mg/dL (2.5-8.0)
--- NOTE | 2018-09-13 15:57 | General Surgery Progress Note ---
Subjective Patient reports: feels better, pain is less, tolerating liquids well, flatus, bowel movement, afebrile Narrative: Note initiated : 09/13/18 at 3:55 pm Service Date, if different from initiated Date: [] Patient: Sharla Villela 68 y/o F admitted on 09/09/18 for Colitis. Chief Complaint: [ppatient continues to improve. She is having multiple bowel movements but no bloody stools are noted. She did have some fecal incontinence last evening but is doing better today. She tolerated her liquids well.. White blood count 7.5; HEMOGLOBIN 11.8] Objective Temp Pulse Resp BP Pulse Ox 97.7 F 91 H 18 134/70 96 09/13/18 15:10 09/13/18 15:10 09/13/18 15:10 09/13/18 15:10 09/13/18 15:10 - Additional Data Intake & Output - Last 24 hours: Intake & Output 09/11/18 09/12/18 09/13/18 09/14/18 05:59 05:59 05:59 05:59 Intake Total 2060 / 2060 3090 / 3090 2500 / 2500 480 / 480 Output Total 1155 / 1155 1100 / 1100 1900 / 1900 550 / 550 Balance 905 / 905 1989 / 1989 600 / 600 -70 / -70 Weight 287 lb 8 oz 295 lb 289 lb 8 oz - General physical appearance well developed, well nourished, no distress, obese - Eyes PERRL, normal ocular movement - ENT normal pinna, normal nares, normal mucosa, no hearing loss, no congestion - Neck no masses, no bruits, trachea midline, no lymphadenopathy, no venous distension - Respiratory normal expansion, normal respiratory effort, clear to auscultation - Cardiovascular Cardiovascular exam: Present: normal rate and rhythm, RRR, +S1, +S2. Absent: JVD, tachycardia - Abdomen tender (tenderness in mid abdomen but softer than yesterday; good active) - Integumentary other ( rash in intertriginous areas about the same) - Neurologic normal coordination, normal sensation - Musculoskeletal normal gait, normal posture - Psychiatric oriented to time, oriented to person, oriented to place, speech is normal, memory intact - Labs 09/13/18 14:00 09/13/18 14:00 Diabetes panel 09/13/18 Range/Units 14:00 Sodium 135 (133-145) mmol/L Potassium 4.0 (3.3-5.1) mmol/L Chloride 100 (96-108) mmol/L Carbon Dioxide 21 L (22-30) mmol/L BUN 9 (8-23) mg/dl Creatinine 0.9 (0.6-1.1) mg/dl Glucose 95 (70-105) mg/dL Calcium 8.5 L (8.6-10.4) mg/dl AST 21 (0-37) U/l ALT 12 (0-40) U/l Alkaline Phosphatase 80 (39-117) U/L Total Protein 6.2 (5.9-8.4) gm/dL Albumin 2.7 L (3.2-5.2) gm/dL Triglycerides 245 H (<150) mg/dl Calcium panel 09/13/18 Range/Units 14:00 Calcium 8.5 L (8.6-10.4) mg/dl Phosphorus 2.6 L (2.7-4.5) mg/dL Albumin 2.7 L (3.2-5.2) gm/dL Pituitary panel 09/13/18 Range/Units 14:00 Sodium 135 (133-145) mmol/L Potassium 4.0 (3.3-5.1) mmol/L Chloride 100 (96-108) mmol/L Carbon Dioxide 21 L (22-30) mmol/L BUN 9 (8-23) mg/dl Creatinine 0.9 (0.6-1.1) mg/dl Glucose 95 (70-105) mg/dL Calcium 8.5 L (8.6-10.4) mg/dl Adrenal panel 09/13/18 Range/Units 14:00 Sodium 135 (133-145) mmol/L Potassium 4.0 (3.3-5.1) mmol/L Chloride 100 (96-108) mmol/L Carbon Dioxide 21 L (22-30) mmol/L BUN 9 (8-23) mg/dl Creatinine 0.9 (0.6-1.1) mg/dl Glucose 95 (70-105) mg/dL Calcium 8.5 L (8.6-10.4) mg/dl Total Bilirubin < 0.2 (0.0-1.0) mg/dL AST 21 (0-37) U/l ALT 12 (0-40) U/l Alkaline Phosphatase 80 (39-117) U/L Total Protein 6.2 (5.9-8.4) gm/dL Albumin 2.7 L (3.2-5.2) gm/dL Assessment and Plan (1) Acute infectious diarrhea Status: Acute Assessment and plan: Abdominal x-rays in the morning Replace magnesium and phosphorus Advance to regular diet Current Visit: Yes (2) Hematochezia Status: Resolved Assessment and plan: resolved Current Visit: Yes (3) Dehydration, moderate Status: Resolved Assessment and plan: Dehydration resolved Current Visit: Yes (4) Hypertension, essential Status: Chronic Assessment and plan: Continue to hold antihypertensives Current Visit: No - Time Spent With Patient Total time spent is greater than 50% in coordination of care (as documented) at patient's floor/unit and/or counseling patient:
[2018-09-13] MEDS ORDERED: POTASSIUM PHOSPHATE 40 MEQ in DEXTROSE 5% IN WATER 500 ML IV ONE (15:59)
--- NOTE | 2018-09-13 19:09 | Cat Scan Report ---
CLINICAL INFORMATION: Ileus. History of colitis. COMPARISON: Plain film examination dated 09/13/2018. Previous CT scan dated 09/09/2018 TECHNIQUE: Axial images were obtained through the abdomen and pelvis. Sagittally and coronally reformatted images. 90 mL contrast material injected intravenously. Oral contrast material was administered FINDINGS: There continues to be gas and fluid throughout small bowel. Small bowel is distended to 4 cm in cross-sectional diameter. The ascending, transverse, and proximal descending colons are prominent and gas filled. Sigmoid colon remains abnormal. There is loss of haustration. There is some straightening and wall thickening. There is pericolonic inflammatory change. Appearance remains most consistent with colitis. A definite discrete mass is not identified but neoplasm at the descending colon - sigmoid junction is not excluded. Colonoscopy is recommended if these abnormalities are persistent. There is increased free pelvic fluid. There is no localized fluid collection. No intra-abdominal abscess. No pneumoperitoneum. Left kidney is abnormal. There is a solid mass at the left upper pole. This measures 4.4 x 4.6 x 4.5 cm. This is consistent with renal cell carcinoma. No other solid mass. There is no hydronephrosis. There is no evidence for renal vein thrombosis. Negative liver. No focal intrahepatic abnormality. There are surgical clips in the gallbladder fossa. Common bile duct measures approximately 10 mm. No definite intrahepatic bile duct dilatation. Negative spleen. No splenomegaly. Normal enhancing splenic and portal veins Negative pancreas. No pancreatic mass. Negative adrenal glands. No lumbar compression fracture. No evidence for lumbar metastases. Sacrum and pelvis are negative. Previous right total hip biopsy plasty. Left hip is negative. Mild atherosclerotic calcification of the abdominal aorta. No abdominal aortic aneurysm. No retroperitoneal or mesenteric adenopathy. IMPRESSION: 1. Solid mass in the upper pole left kidney consistent with renal cell carcinoma 2. Persistent abnormality in the sigmoid colon. Findings remain most consistent with colitis. Underlying neoplasm is not excluded and if these findings do not resolve colonoscopy is recommended 3. Dilated gas and fluid-filled small bowel. Colon is prominent and gas filled to the level of the descending colon - sigmoid colon junction. The exam was performed using radiation dose optimization techniques including, but not limited to, automated exposure control, adjustment of the mA and/or kV according to patient size and use of iterative reconstruction technique. Interpreted and Authenticated by: Yovanny Diaz 09/13/18
[2018-09-13] MEDS: ALPRAZolam 0.5 MG TABLET PO PRN (21:07)
[2018-09-14] MEDS: metroNIDAZOLE 500 MG/100 ML BAG IV SCH ×3 (00:01→12:02)
[2018-09-14] MEDS: 0.9 % SODIUM CHLORIDE 10 ML SYRINGE IV SCH ×2 (05:26→14:55)
[2018-09-14] MEDS: 0.9 % SODIUM CHLORIDE 1,000 ML IV SCH ×3 (05:29→09:45)
[2018-09-14] MEDS: ONDANSETRON 4 MG/2 ML VIAL IV PRN (07:03)
[2018-09-14] MEDS: PANTOPRAZOLE 40 MG VIAL IV SCH (07:03)
[2018-09-14 07:08] LABS: Basophils # (Auto) 0 K/mcL (0.0-0.3); Basophils % (Auto) 0.4 % (0.0-2.0); Eosinophils # (Auto) 0.1 K/mcL (0.0-0.7); Eosinophils % (Auto) 1.6 % (0.0-7.0); Granulocytes % (Auto) 80.2 % (38.0-78.0); Lymphocytes # (Auto) 0.6 K/mcL (1.5-4.8); Lymphocytes % (Auto) 9.3 % (15.5-49.0); Mean Cell Volume 84.9 fL (80.0-100.0); Monocytes # (Auto) 0.6 K/mcL (0.1-0.9); Monocytes % (Auto) 8.5 % (1.0-12.0); Platelet Count 200 K/mcL (140-440); RBC 3.93 M/mcL (4.00-5.20); Red Cell Distribution Width 14.3 % (11.5-14.5)
[2018-09-14 09:07] LABS: ALT/SGPT 14 U/l (0-40); Albumin 2.6 gm/dL (3.2-5.2); Albumin/Globulin Ratio 0.9 (1.0-2.3); Alkaline Phosphatase 109 U/L (39-117); Bilirubin,Direct < 0.2 mg/dL (0.0-0.3); Blood Urea Nitrogen 6 mg/dl (8-23); Gamma Glutamyl Transpeptidase 20 U/L (5-36); Uric Acid 6.3 mg/dL (2.5-8.0)
--- NOTE | 2018-09-14 16:07 | Discharge Summary ---
Providers - Providers Patient information: Note initiated : 09/14/18 at 4:02 pm Service Date, if different from initiated Date: [] Patient: Sharla Villela 68 y/o F admitted on 09/09/18 for Colitis. Chief Complaint: [] Date of admission: 09/09/18 Discharge date: 09/14/18 Attending physician: Gabby Sue Hospitalization Hospital course: 68-year-old female admitted on 09 September with nausea vomiting diarrhea and dehydration. She states that her entire family of 6 had nausea vomiting and diarrhea. She was the last member to become ill. On the day prior to admission she felt nauseated and had multiple episodes of vomiting followed by diarrhea. She related developed 10 episodes of bloody bowel movements. She was seen in the emergency room with a blood pressure in the 60 systolic range with tachycardia. Her initial lactate was 2.6. With IV hydration her blood pressure increased and her tachycardia improved. CT suggests segmental inflammation of the descending and sigmoid colon probably infectious in origin. At the time of admission her blood pressure and pulse were stable. Patient was continued on IV hydration and Levaquin and Flagyl. Stool for C. difficile was negative. Routine stool cultures were never obtained because her bowel movements.. She continued to have bloody bowel movements for 3 days but has not had any bloody bowel movements for the past 36 hours. Her abdominal discomfort has resolved. She is having regular soft bowel movements at this time. She does have some problems with control and has had some incontinence. She feels well at this time and is stable enough for discharge home. She is advised to use Pepto-Bismol as needed to control her diarrheal stools. Discharge diagnosis: acute infectious diarrhea Secondary discharge diagnosis: Dehydration with hypotension Acute kidney injury Hematochezia Anemia due to acute blood loss Reason for admission: aacute infectious diarrhea with nausea vomiting and bloody diarrhea Procedures: None Pertinent studies/significant findings: CT of abdomen and pelvis without contrast Complications: None Exam Temp Pulse Resp BP Pulse Ox 98.1 F 83 18 113/65 96 09/14/18 12:00 09/14/18 12:00 09/14/18 12:00 09/14/18 12:00 09/14/18 12:00 - General physical appearance well developed, well nourished, no distress, obese - Eyes PERRL, normal ocular movement - ENT normal pinna, normal nares, normal mucosa, no hearing loss, no congestion - Head Head exam IM: Present: atraumatic, normocephalic - Neck no masses, no bruits, trachea midline, no lymphadenopathy, no venous distension - Cardiovascular Cardiovascular exam IM: Present: normal rate and rhythm, RRR, +S1, +S2. Absent : irregular rhythm, JVD, tachycardia - Respiratory normal expansion, normal respiratory effort, clear to percussion, clear to auscultation - Abdomen Abdomen: Present: soft, non tender, bowel sounds. Absent: tender Hernia: Present: none - Integumentary Present: no rash, no growths, no abnormal pigmentation - Neurologic Present: normal coordination, normal sensation - Musculoskeletal Present: normal gait, normal posture - Psychiatric Present: oriented to time, oriented to person, oriented to place, speech is normal, memory intact Discharge Plan - Patient/Caregiver Discharge Instructions Activity: increase activity as tolerated Diet: Regular Diet Additional Instructions: Discharge Instructions:use Pepto-Bismol as needed to control diarrhea Advance diet as tolerated Continue ciprofloxacin and Levaquin for 5 days Prescriptions: Ciprofloxacin [Cipro] 500 mg PO BID #10 tab metroNIDAZOLE [Flagyl] 500 mg PO Q8 #14 tab - Follow up Plan Follow up with: Yovanny Hughes DO [Primary Care Provider] - Disposition: Home, Self-Care Prognosis: Good Rehab Potential: Good I certify that the patient requires SNF services.: No Overall status at discharge: patient is not back to baseline (1) Pending Studies Resuscitation Status Full Code Diet Regular Diet Start ThuSep 13 155 Alprazolam (Xanax) 1 mg PO HSP PRN PRN Reason: Insomnia Last Admin: 09/13/18 21:07 Dose: 1 mg Admin: 09/12/18 22:14 Dose: 1 mg Admin: 09/11/18 21:22 Dose: 1 mg Admin: 09/10/18 20:18 Dose: 1 mg Levofloxacin (Levaquin) 750 mg in 150 mls @ 100 mls/hr IV Q48H ANTONIO Last Infusion: 09/13/18 10:12 Dose: 100 mls/hr Admin: 09/13/18 08:42 Dose: 100 mls/hr Infusion: 09/11/18 11:21 Dose: 100 mls/hr Admin: 09/11/18 09:51 Dose: 100 mls/hr Metronidazole (Flagyl) 500 mg in 100 mls @ 100 mls/hr IV Q6H ANTONIO Last Infusion: 09/14/18 13:16 Dose: 0 mls/hr Admin: 09/14/18 12:02 Dose: 100 mls/hr Infusion: 09/14/18 06:37 Dose: 0 mls/hr Admin: 09/14/18 05:29 Dose: 100 mls/hr Infusion: 09/14/18 01:01 Dose: 100 mls/hr Admin: 09/14/18 00:01 Dose: 100 mls/hr Infusion: 09/13/18 18:21 Dose: 100 mls/hr Admin: 09/13/18 17:21 Dose: 100 mls/hr Infusion: 09/13/18 14:34 Dose: 100 mls/hr Admin: 09/13/18 13:34 Dose: 100 mls/hr Infusion: 09/13/18 08:40 Dose: 100 mls/hr Admin: 09/13/18 05:20 Dose: 100 mls/hr Infusion: 09/13/18 02:05 Dose: 100 mls/hr Admin: 09/13/18 01:05 Dose: 100 mls/hr Infusion: 09/12/18 18:37 Dose: 100 mls/hr Admin: 09/12/18 17:37 Dose: 100 mls/hr Infusion: 09/12/18 15:39 Dose: 100 mls/hr Admin: 09/12/18 11:22 Dose: 100 mls/hr Infusion: 09/12/18 06:47 Dose: 100 mls/hr Admin: 09/12/18 05:07 Dose: 100 mls/hr Infusion: 09/12/18 01:00 Dose: 0 mls/hr Admin: 09/11/18 23:58 Dose: 100 mls/hr Infusion: 09/11/18 18:25 Dose: 0 mls/hr Admin: 09/11/18 17:20 Dose: 100 mls/hr Infusion: 09/11/18 12:26 Dose: 100 mls/hr Admin: 09/11/18 11:26 Dose: 100 mls/hr Infusion: 09/11/18 06:45 Dose: 100 mls/hr Admin: 09/11/18 05:45 Dose: 100 mls/hr Infusion: 09/11/18 01:00 Dose: 0 mls/hr Admin: 09/10/18 23:59 Dose: 100 mls/hr Infusion: 09/10/18 18:20 Dose: 0 mls/hr Admin: 09/10/18 17:19 Dose: 100 mls/hr Infusion: 09/10/18 15:57 Dose: 0 mls/hr Admin: 09/10/18 12:00 Dose: 100 mls/hr Infusion: 09/10/18 07:05 Dose: 0 mls/hr Admin: 09/10/18 06:02 Dose: 100 mls/hr Infusion: 09/10/18 00:26 Dose: 100 mls/hr Admin: 09/09/18 23:26 Dose: 100 mls/hr Infusion: 09/09/18 18:52 Dose: 100 mls/hr Admin: 09/09/18 17:52 Dose: 100 mls/hr Acetaminophen (Ofirmev) 1,000 mg in 100 mls @ 200 mls/hr IV Q6HP PRN PRN Reason: Pain Last Infusion: 09/12/18 05:06 Dose: 0 mls/hr Admin: 09/12/18 03:46 Dose: 200 mls/hr Infusion: 09/11/18 19:30 Dose: 0 mls/hr Admin: 09/11/18 18:56 Dose: 200 mls/hr Infusion: 09/11/18 04:55 Dose: 0 mls/hr Admin: 09/11/18 04:25 Dose: 200 mls/hr Infusion: 09/10/18 20:20 Dose: 0 mls/hr Admin: 09/10/18 19:48 Dose: 200 mls/hr Infusion: 09/10/18 12:01 Dose: 0 mls/hr Admin: 09/10/18 09:56 Dose: 200 mls/hr Infusion: 09/10/18 03:03 Dose: 0 mls/hr Admin: 09/10/18 02:33 Dose: 200 mls/hr Infusion: 09/09/18 23:07 Dose: 0 mls/hr Admin: 09/09/18 20:45 Dose: 200 mls/hr Sodium Chloride (Sodium Chloride 0.9%) 1,000 mls @ 100 mls/hr IV .Q10H ANTONIO Last Infusion: 09/14/18 15:43 Dose: 0 mls/hr Admin: 09/14/18 09:45 Dose: Not Given Admin: 09/14/18 05:29 Dose: 100 mls/hr Admin: 09/14/18 00:00 Dose: Not Given Infusion: 09/13/18 18:43 Dose: 100 mls/hr Admin: 09/13/18 13:45 Dose: Not Given Admin: 09/13/18 08:43 Dose: 100 mls/hr Admin: 09/13/18 04:53 Dose: Not Given Admin: 09/12/18 17:44 Dose: Not Given Admin: 09/12/18 08:32 Dose: Not Given Infusion: 09/12/18 06:51 Dose: 100 mls/hr Admin: 09/11/18 20:51 Dose: 100 mls/hr Infusion: 09/11/18 19:00 Dose: 0 mls/hr Admin: 09/11/18 14:20 Dose: Not Given Admin: 09/11/18 05:45 Dose: 100 mls/hr Infusion: 09/11/18 03:09 Dose: 100 mls/hr Admin: 09/10/18 17:09 Dose: 100 mls/hr Ondansetron HCl (Zofran) 4 mg IV Q4HP PRN PRN Reason: Nausea And Vomiting Last Admin: 09/14/18 07:03 Dose: 4 mg Admin: 09/13/18 12:33 Dose: 4 mg Admin: 09/11/18 18:57 Dose: 4 mg Admin: 09/11/18 04:25 Dose: 4 mg Admin: 09/10/18 23:31 Dose: 4 mg Admin: 09/10/18 19:48 Dose: 4 mg Admin: 09/10/18 15:56 Dose: 4 mg Admin: 09/10/18 12:01 Dose: 4 mg Admin: 09/10/18 06:51 Dose: 4 mg Admin: 09/10/18 02:32 Dose: 4 mg Admin: 09/09/18 20:44 Dose: 4 mg Pantoprazole Sodium (Protonix) 40 mg IV BIDAC ANTONIO Last Admin: 09/14/18 07:03 Dose: 40 mg Admin: 09/13/18 17:21 Dose: 40 mg Admin: 09/13/18 08:40 Dose: 40 mg Admin: 09/12/18 17:32 Dose: 40 mg Admin: 09/12/18 06:46 Dose: 40 mg Admin: 09/11/18 16:32 Dose: 40 mg Admin: 09/11/18 07:34 Dose: 40 mg Admin: 09/10/18 17:19 Dose: 40 mg Admin: 09/10/18 06:51 Dose: 40 mg Admin: 09/09/18 15:56 Dose: 40 mg Sodium Chloride (Saline Flush) 10 ml IV Q8 ANTONIO Last Admin: 09/14/18 14:55 Dose: Not Given Admin: 09/14/18 05:26 Dose: Not Given Admin: 09/13/18 21:00 Dose: Not Given Admin: 09/13/18 15:54 Dose: Not Given Admin: 09/13/18 04:56 Dose: Not Given Admin: 09/12/18 20:05 Dose: Not Given Admin: 09/12/18 15:38 Dose: Not Given Admin: 09/12/18 06:49 Dose: Not Given Admin: 09/11/18 23:29 Dose: Not Given Admin: 09/11/18 14:27 Dose: 10 ml Admin: 09/11/18 05:45 Dose: 10 ml Admin: 09/10/18 23:31 Dose: 10 ml Admin: 09/10/18 12:01 Dose: Not Given Admin: 09/10/18 06:03 Dose: 10 ml Admin: 09/09/18 20:55 Dose: 10 ml Shift Summary 09/14/18 04:30 Shift Summary by Pati Mathews Addendum entered by Pati Mathews R.N. 09/14/18 04:37: Will clamp levy at 0600 for bladder training. Need order to D/C levy Original Note: Pt had good night. One inc stool at beginning of shift and one stool in bathroom. No pain meds required this shift. Pt had regular dinner which she tolerated well. Cont to have excessive belching. Pt is hoping to go home today. SCD's got stool on them, if pt does not discharge please get a new pair. Will update with verbal report. Initialized on 09/14/18 04:30 - END OF NOTE
== END 2018-09-14 17:05 | disposition home or self-care (01) | DRG 392 ==
LOC: ED 09:28 → MEDSUR 14:16
PROVIDERS: ADMIT Family Medicine Adult Medicine; ATTEND Family Medicine Adult Medicine
CPT/HCPCS: 80047; 85014; 87324; 87449; A6250; J0131; J1956; J2405; J7030; J7060; Q9967

== ENCOUNTER 2018-12-02 07:08 | Inpatient (IN) ==
[2018-11-25 18:12] LABS: Basophils # (Auto) 0 K/mcL (0.0-0.3); Basophils % (Auto) 0.3 % (0.0-2.0); Eosinophils # (Auto) 0.2 K/mcL (0.0-0.7); Eosinophils % (Auto) 2.6 % (0.0-7.0); Granulocytes % (Auto) 66.8 % (38.0-78.0); Lymphocytes # (Auto) 1.5 K/mcL (1.5-4.8); Lymphocytes % (Auto) 21.4 % (15.5-49.0); Mean Cell Volume 83.7 fL (80.0-100.0); Mean Corpuscular HGB Conc 31.6 g/dL (31.0-36.0); Monocytes # (Auto) 0.6 K/mcL (0.1-0.9); Monocytes % (Auto) 8.9 % (1.0-12.0); Platelet Count 199 K/mcL (140-440); RBC 4.36 M/mcL (4.00-5.20); Red Cell Distribution Width 15.9 % (11.5-14.5)
[2018-11-25 18:28] LABS: ALT/SGPT 8 U/l (0-40); Albumin 3.5 gm/dL (3.2-5.2); Alkaline Phosphatase 93 U/L (39-117); Blood Urea Nitrogen 12 mg/dl (8-23)
[~2018-12-02 07:08] MED LIST: cefOXitin 2 GM VIAL IV SCH
[2018-12-02] MEDS ORDERED: LIDOCAINE HCL/PF 100 MG/5 ML SYRINGE IV ONE (11:30)
[2018-12-02] MEDS ORDERED: ONDANSETRON 4 MG/2 ML VIAL IV ONE (11:30)
[2018-12-02] MEDS ORDERED: fentaNYL 250 MCG/5 ML VIAL IV ONE (11:30)
[2018-12-02] MEDS ORDERED: TRANEXAMIC ACID 1,000 MG/10 ML VIAL IV ONE (11:30)
[2018-12-02] MEDS ORDERED: PROPOFOL 200 MG/20 ML VIAL IV ONE (11:30)
[2018-12-02] MEDS ORDERED: KETAMINE 100 MG/ML ML IV ONE (11:30)
[2018-12-02] MEDS ORDERED: PHENYLEPHRINE 10 MG/ML VIAL IV ONE (11:30)
[2018-12-02] MEDS ORDERED: GLYCOPYRROLATE 0.2 MG/ML VIAL IV ONE (11:30)
[2018-12-02] MEDS ORDERED: MIDAZOLAM 2 MG/2 ML VIAL IV ONE (11:30)
[2018-12-02] MEDS ORDERED: NEOSTIGMINE 1 MG/ML VIAL IV ONE (11:30)
[2018-12-02] MEDS ORDERED: ROCURONIUM 10 MG/ML ML IV ONE (11:30)
[2018-12-02] MEDS ORDERED: GELATIN SPONGE,ABSORBABLE 1 EACH SPONGE TOPICAL ONE (13:42)
[2018-12-02] MEDS ORDERED: PROMETHAZINE 25 MG/ML VIAL IM PRN (13:46)
[2018-12-02] MEDS ORDERED: IPRATROPIUM/ALBUTEROL 3 ML AMPUL.NEB NEB PRN (13:46)
[2018-12-02] MEDS ORDERED: ONDANSETRON 4 MG/2 ML VIAL IV PRN (13:46)
[2018-12-02] MEDS ORDERED: ACETAMINOPHEN 1,000 MG/100 ML BOTTLE IV ONE (13:46)
[2018-12-02] MEDS ORDERED: PROMETHAZINE 25 MG/ML VIAL IV PRN (13:46)
[2018-12-02] MEDS ORDERED: MEPERIDINE 50 MG/ML INJECTION IM PRN (13:46)
[2018-12-02] MEDS ORDERED: BUPIVACAINE W/EPI 0.25% 50 ML VIAL IJ ONE (13:54)
[2018-12-02] MEDS ORDERED: MAG HYDROX/AL HYDROX/SIMETH 30 ML ORAL.SUSP PO PRN (14:00)
[2018-12-02] MEDS ORDERED: LACTATED RINGERS 1,000 ML IV SCH (14:00)
[2018-12-02] MEDS ORDERED: MAGNESIUM HYDROXIDE 30 ML ORAL.SUSP PO PRN (14:00)
[2018-12-02] MEDS ORDERED: oxyCODONE/APAP 5/325MG TABLET PO PRN (14:00)
[2018-12-02] MEDS ORDERED: METRONIDAZOLE 0.75% TOPICAL PRN (14:04)
[2018-12-02] MEDS ORDERED: traMADol 50 MG TABLET PO PRN (14:04)
[2018-12-02] MEDS ORDERED: TRIAMCINOLONE CREAM 0.1% 15G 1 DOSE TUBE TOPICAL PRN (14:04)
[2018-12-02] MEDS ORDERED: HYDROmorphone PCA 30 MG/30 ML PCA.VIAL IV PRN (14:06)
--- NOTE | 2018-12-02 14:09 | Brief Operative Note ---
Date of procedure: 12/02/18 Pre-op diagnosis: left renal cell ca Post-op diagnosis: same Procedure: left radical nephrectomy Grafts/Implants: No Anesthesia: GETA Findings: see note Complications: none Surgeon: Vahid Holland Barrel Ribs Solderer: Gabby Sue Estimated blood loss (cc): 350 Specimens Removed/Pathology: other (left kidney) Condition: stable Disposition: PACU
[2018-12-02] MEDS ORDERED: ALBUTEROL SULFATE 1 PUFF INHALER INH PRN (14:10)
--- NOTE | 2018-12-02 14:37 | Operative Note ---
DATE OF OPERATION: 12/02/2018 PREOPERATIVE DIAGNOSIS: Left renal cell carcinoma. POSTOPERATIVE DIAGNOSIS: Left renal cell carcinoma PROCEDURE: Left radical nephrectomy. SURGEON: Vahid Holland MD INTELLIGENCE OFFICER: Gabby Sue MD INDICATION: The patient is a 66-year-old lady who was noted to have an incidental mass on the left kidney. Biopsy was performed which was consistent with renal cell carcinoma and she presents now for resection. PROCEDURE IN DETAIL: The patient was identified and consent was signed. She was given preoperative antibiotics, placed in supine position, and prepped and draped in standard fashion. Left subcostal incision was made and this was carried down to the fascia with electrocautery. The fascia was then opened and we were able to enter the abdominal cavity. Using the Bookwalter retractor, we were able to expose the white line of Toldt and this was taken down with electrocautery. We were then able to reposition the retractors and were able to identify Gerota's fascia. This was opened and we carefully dissected around the hilum. We were able to identify the ureter and this was clipped and cut and we were then able to see the renal vein. This was also clipped and cut, doubly ligated proximally. The renal artery was also found and this was also clipped and cut. We did find the gonadal vein and this was clipped and cut, also clipped and sewn. It should be noted there were two ties on the renal artery and vein. The adrenal vein was also tied off. We were then able to deliver the kidney with some difficulty because of the fat. The spleen was not injured. We irrigated the wound copiously and there was no bleeding. We did place Gelfoam and also Rafy to help control the bleeding. A drain was placed. We then were able to pack the abdominal contents back where they were supposed to be. We did a sponge count and this was correct. The wound was then closed with a #1 PDS in three layers and the subcutaneous fascia was closed with 0 chromic. Local anesthesia was instilled and the wound was copiously irrigated. We then closed with nicole. Sterile dressings were applied. The patient was awoken and taken to recovery room in stable condition. She tolerated the procedure well. Needle and sponge counts were correct. Estimated blood loss was 350 mL. EDMAR:dipak Job ID: [id number] Doc ID: [id number] Vahid Hollnad MD
[2018-12-02] MEDS: MEPERIDINE 25 MG/ML SYRINGE IV PRN ×2 (14:38→14:46)
[2018-12-02] MEDS: fentaNYL 100 MCG/2 ML VIAL IV PRN ×2 (14:54→15:03)
[2018-12-02] MEDS: DEXTROSE 5%-NS 1,000 ML IV SCH (16:00)
[2018-12-02] MEDS: 0.9 % SODIUM CHLORIDE 10 ML SYRINGE IV SCH ×2 (16:15→20:33)
[2018-12-02] MEDS: ACETAMINOPHEN 650 MG/65 ML BOTTLE IV SCH (17:30)
[2018-12-02] MEDS: OXYBUTYNIN CHLORIDE 5 MG TABLET PO SCH ×2 (17:32→20:32)
[2018-12-02] MEDS: CYCLOBENZAPRINE 10 MG TABLET PO SCH (20:32)
[2018-12-02] MEDS: cefOXitin 2 GM VIAL IV SCH (21:28)
[2018-12-02] MEDS ORDERED: LACTATED RINGERS 500 ML IV ONE (22:00)
[2018-12-02] MEDS: ONDANSETRON 4 MG/2 ML VIAL IV PRN (23:00)
[2018-12-03] MEDS ORDERED: ONDANSETRON 4 MG/2 ML VIAL ONE (02:18)
[2018-12-03] MEDS: ONDANSETRON 4 MG/2 ML VIAL IV PRN (03:00)
[2018-12-03] MEDS: DEXTROSE 5%-NS 1,000 ML IV SCH ×4 (03:35→17:38)
[2018-12-03] MEDS: cefOXitin 2 GM VIAL IV SCH (04:34)
[2018-12-03 05:28] LABS: Mean Cell Volume 82.8 fL (80.0-100.0); Mean Corpuscular HGB Conc 32.1 g/dL (31.0-36.0); Platelet Count 214 K/mcL (140-440); RBC 4.09 M/mcL (4.00-5.20); Red Cell Distribution Width 14.7 % (11.5-14.5)
[2018-12-03] MEDS: ACETAMINOPHEN 650 MG/65 ML BOTTLE IV SCH ×4 (05:46→17:24)
[2018-12-03] MEDS: 0.9 % SODIUM CHLORIDE 10 ML SYRINGE IV SCH ×3 (05:47→21:24)
[2018-12-03 05:53] LABS: Blood Urea Nitrogen 16 mg/dl (8-23)
--- NOTE | 2018-12-03 07:28 | General Surgery Progress Note ---
Subjective Patient reports: still having pain, no flatus, afebrile Narrative: Note initiated : 12/03/18 at 7:26 am Service Date, if different from initiated Date: [] Patient: Sharla Villela 68 y/o F admitted on 12/02/18 for Left Radical Nephrectomy. Chief Complaint: [] POD#1, patient without complaints. pain controlled with meds. labs look good. will transfer to floor. ambulate today Objective Temp Pulse Resp BP Pulse Ox 98.2 F 88 8 L 117/48 96 12/03/18 04:02 12/03/18 04:02 12/03/18 04:46 12/03/18 04:02 12/03/18 04:02 - Additional Data Intake & Output - Last 24 hours: Intake & Output 12/01/18 12/02/18 12/03/18 12/04/18 05:59 05:59 05:59 05:59 Intake Total 3790 65 Output Total 1375 Balance 2415 65 Weight 218 lb 4.8 oz - Labs 12/03/18 04:26 12/03/18 04:26 Diabetes panel 12/03/18 Range/Units 04:26 Sodium 137 (133-145) mmol/L Potassium 4.7 (3.3-5.1) mmol/L Chloride 104 (96-108) mmol/L Carbon Dioxide 24 (22-30) mmol/L BUN 16 (8-23) mg/dl Creatinine 1.4 H (0.6-1.1) mg/dl Glucose 153 H (70-105) mg/dL Calcium 8.5 L (8.6-10.4) mg/dl Calcium panel 12/03/18 Range/Units 04:26 Calcium 8.5 L (8.6-10.4) mg/dl Pituitary panel 12/03/18 Range/Units 04:26 Sodium 137 (133-145) mmol/L Potassium 4.7 (3.3-5.1) mmol/L Chloride 104 (96-108) mmol/L Carbon Dioxide 24 (22-30) mmol/L BUN 16 (8-23) mg/dl Creatinine 1.4 H (0.6-1.1) mg/dl Glucose 153 H (70-105) mg/dL Calcium 8.5 L (8.6-10.4) mg/dl Adrenal panel 12/03/18 Range/Units 04:26 Sodium 137 (133-145) mmol/L Potassium 4.7 (3.3-5.1) mmol/L Chloride 104 (96-108) mmol/L Carbon Dioxide 24 (22-30) mmol/L BUN 16 (8-23) mg/dl Creatinine 1.4 H (0.6-1.1) mg/dl Glucose 153 H (70-105) mg/dL Calcium 8.5 L (8.6-10.4) mg/dl Assessment and Plan - Time Spent With Patient Total time spent is greater than 50% in coordination of care (as documented) at patient's floor/unit and/or counseling patient:
[2018-12-03] MEDS ORDERED: OMEPRAZOLE 20 MG CAPSULE PO SCH (07:30)
[2018-12-03] MEDS ORDERED: traMADol 50 MG TABLET PO PRN (10:20)
[2018-12-03] MEDS ORDERED: ALBUTEROL SULFATE 1 PUFF INHALER INH PRN (10:20)
[2018-12-03] MEDS ORDERED: METRONIDAZOLE 0.75% TOPICAL PRN (10:20)
[2018-12-03] MEDS ORDERED: ONDANSETRON 4 MG/2 ML VIAL IV PRN (10:20)
[2018-12-03] MEDS ORDERED: MAG HYDROX/AL HYDROX/SIMETH 30 ML ORAL.SUSP PO PRN (10:20)
[2018-12-03] MEDS ORDERED: TRIAMCINOLONE CREAM 0.1% 15G 1 DOSE TUBE TOPICAL PRN (10:20)
[2018-12-03] MEDS ORDERED: HYDROmorphone PCA 30 MG/30 ML PCA.VIAL IV PRN (10:20)
[2018-12-03] MEDS: OXYBUTYNIN CHLORIDE 5 MG TABLET PO SCH ×3 (11:13→21:24)
[2018-12-03] MEDS ORDERED: cefOXitin 2 GM VIAL IV SCH (11:30)
[2018-12-03] MEDS: CYCLOBENZAPRINE 10 MG TABLET PO SCH ×3 (11:38→21:24)
[2018-12-03 12:36] LABS: Estimated Average Glucose(eAG) 100 mg/dL; Hemoglobin A1C 5.1 % HGB (4.0-6.0)
[2018-12-03] MEDS: oxyCODONE/APAP 5/325MG TABLET PO PRN ×2 (12:59→21:23)
[2018-12-04] MEDS: ACETAMINOPHEN 650 MG/65 ML BOTTLE IV SCH ×2 (00:17→06:02)
[2018-12-04] MEDS: DEXTROSE 5%-NS 1,000 ML IV SCH ×3 (01:32→18:02)
[2018-12-04] MEDS: 0.9 % SODIUM CHLORIDE 10 ML SYRINGE IV SCH ×3 (06:03→21:49)
[2018-12-04 07:31] LABS: Mean Cell Volume 83.9 fL (80.0-100.0); Mean Corpuscular HGB Conc 31.3 g/dL (31.0-36.0); Platelet Count 209 K/mcL (140-440); RBC 3.48 M/mcL (4.00-5.20); Red Cell Distribution Width 15.4 % (11.5-14.5)
[2018-12-04 08:10] LABS: BUN/Creatinine Ratio 10.6 (12-20); Blood Urea Nitrogen 17 mg/dl (8-23)
[2018-12-04] MEDS: OMEPRAZOLE 20 MG CAPSULE PO SCH (08:19)
[2018-12-04] MEDS: CYCLOBENZAPRINE 10 MG TABLET PO SCH ×2 (08:19→21:49)
[2018-12-04] MEDS: OXYBUTYNIN CHLORIDE 5 MG TABLET PO SCH ×3 (08:19→21:49)
[2018-12-04] MEDS: oxyCODONE/APAP 5/325MG TABLET PO PRN (08:19)
--- NOTE | 2018-12-04 09:24 | General Surgery Progress Note ---
Subjective Patient reports: pain is less, tolerating liquids well, no flatus, no bowel movement Narrative: Note initiated : 12/04/18 at 9:22 am Service Date, if different from initiated Date: [] Patient: Sharla Villela 68 y/o F admitted on 12/02/18 for Left Radical Nephrectomy. Chief Complaint: [] POD #2, patient complains of gas, no flatus, will ambulate and ducolax. levy and WILIAN removed. labs stable. wound is clean and dry. Objective Temp Pulse Resp BP Pulse Ox 97.4 F 89 17 109/59 97 12/04/18 08:00 12/04/18 04:00 12/04/18 08:00 12/04/18 08:00 12/04/18 08:00 - Additional Data Intake & Output - Last 24 hours: Intake & Output 12/02/18 12/03/18 12/04/18 12/05/18 05:59 05:59 05:59 05:59 Intake Total 3790 2840 65 Output Total 1375 980 270 Balance 2415 1860 -205 Weight 218 lb 4.8 oz 283 lb 8 oz - Labs 12/04/18 04:52 12/04/18 04:52 Diabetes panel 12/03/18 12/04/18 Range/Units 04:26 04:52 Sodium 136 (133-145) mmol/L Potassium 4.9 (3.3-5.1) mmol/L Chloride 106 (96-108) mmol/L Carbon Dioxide 18 L (22-30) mmol/L BUN 17 (8-23) mg/dl Creatinine 1.6 H (0.6-1.1) mg/dl Glucose 87 (70-105) mg/dL Hemoglobin A1c 5.1 (4.0-6.0) % HGB Calcium 8.1 L (8.6-10.4) mg/dl Calcium panel 12/04/18 Range/Units 04:52 Calcium 8.1 L (8.6-10.4) mg/dl Pituitary panel 12/04/18 Range/Units 04:52 Sodium 136 (133-145) mmol/L Potassium 4.9 (3.3-5.1) mmol/L Chloride 106 (96-108) mmol/L Carbon Dioxide 18 L (22-30) mmol/L BUN 17 (8-23) mg/dl Creatinine 1.6 H (0.6-1.1) mg/dl Glucose 87 (70-105) mg/dL Calcium 8.1 L (8.6-10.4) mg/dl Adrenal panel 12/04/18 Range/Units 04:52 Sodium 136 (133-145) mmol/L Potassium 4.9 (3.3-5.1) mmol/L Chloride 106 (96-108) mmol/L Carbon Dioxide 18 L (22-30) mmol/L BUN 17 (8-23) mg/dl Creatinine 1.6 H (0.6-1.1) mg/dl Glucose 87 (70-105) mg/dL Calcium 8.1 L (8.6-10.4) mg/dl Assessment and Plan - Time Spent With Patient Total time spent is greater than 50% in coordination of care (as documented) at patient's floor/unit and/or counseling patient:
[2018-12-04] MEDS: BISACODYL 10 MG SUPP.RECT PR SCH (10:07)
[2018-12-04] MEDS: oxyCODONE/APAP 10/325MG TABLET PO PRN ×2 (12:06→16:13)
[2018-12-05] MEDS: oxyCODONE/APAP 5/325MG TABLET PO PRN ×5 (01:43→22:20)
[2018-12-05] MEDS: DEXTROSE 5%-NS 1,000 ML IV SCH (03:35)
[2018-12-05] MEDS: 0.9 % SODIUM CHLORIDE 10 ML SYRINGE IV SCH ×3 (04:33→20:17)
[2018-12-05] MEDS: OMEPRAZOLE 20 MG CAPSULE PO SCH (07:46)
[2018-12-05] MEDS: OXYBUTYNIN CHLORIDE 5 MG TABLET PO SCH ×3 (07:46→20:17)
[2018-12-05] MEDS: BISACODYL 10 MG SUPP.RECT PR SCH (07:46)
[2018-12-05] MEDS: MAGNESIUM HYDROXIDE 30 ML ORAL.SUSP PO PRN (07:46)
[2018-12-05] MEDS: CYCLOBENZAPRINE 10 MG TABLET PO SCH ×2 (07:46→20:17)
--- NOTE | 2018-12-05 09:43 | General Surgery Progress Note ---
Subjective Patient reports: feels better, pain is less, bowel movement Narrative: Note initiated : 12/05/18 at 9:42 am Service Date, if different from initiated Date: [] Patient: Sharla Villela 68 y/o F admitted on 12/02/18 for Left Radical Nephrectomy. Chief Complaint: [] POD #3, patient doing well. pain controlled with meds. will advance diet ambulate today Objective Temp Pulse Resp BP Pulse Ox 98.2 F 90 18 110/59 91 12/05/18 06:50 12/05/18 03:41 12/05/18 07:49 12/05/18 06:50 12/05/18 06:50 - Additional Data Intake & Output - Last 24 hours: Intake & Output 12/03/18 12/04/18 12/05/18 12/06/18 05:59 05:59 05:59 05:59 Intake Total 3790 2840 3675 Output Total 1375 980 595 250 Balance 2415 1860 3080 -250 Weight 218 lb 4.8 oz 283 lb 8 oz 286 lb - Labs 12/04/18 04:52 12/04/18 04:52 Assessment and Plan - Time Spent With Patient Total time spent is greater than 50% in coordination of care (as documented) at patient's floor/unit and/or counseling patient:
[2018-12-06] MEDS: 0.9 % SODIUM CHLORIDE 10 ML SYRINGE IV SCH (04:53)
--- NOTE | 2018-12-06 07:12 | General Surgery Progress Note ---
Subjective Patient reports: feels better, tolerating a regular diet, voiding w/o difficulty, bowel movement Narrative: Note initiated : 12/06/18 at 7:10 am Service Date, if different from initiated Date: [] Patient: Sharla Villela 68 y/o F admitted on 12/02/18 for Left Radical Nephrectomy. Chief Complaint: [] POD #4 patient doing well. wound clean and dry w/o signs of infection. will d/c to home Objective Temp Pulse Resp BP Pulse Ox 98.5 F 83 18 103/58 95 12/06/18 06:37 12/06/18 03:54 12/06/18 06:37 12/06/18 06:37 12/06/18 06:37 - Additional Data Intake & Output - Last 24 hours: Intake & Output 12/04/18 12/05/18 12/06/18 12/07/18 05:59 05:59 05:59 05:59 Intake Total 2840 3675 2660 Output Total 980 595 750 500 Balance 1860 3080 1910 -500 Weight 283 lb 8 oz 286 lb 285 lb - Labs 12/04/18 04:52 12/04/18 04:52 Assessment and Plan - Time Spent With Patient Total time spent is greater than 50% in coordination of care (as documented) at patient's floor/unit and/or counseling patient:
--- NOTE | 2018-12-06 07:14 | Discharge Plan ---
Discharge Plan - Patient/Caregiver Discharge Instructions Activity: increase activity as tolerated Diet: Regular Diet Additional Instructions: no heavy lifting > 10 lbs - Follow up Plan Follow up with: Vahid Holland MD [Physician] - 12/17/18 10:30 am Disposition: Home, Self-Care Prognosis: Good Rehab Potential: Good
[2018-12-06] MEDS: OXYBUTYNIN CHLORIDE 5 MG TABLET PO SCH (08:03)
[2018-12-06] MEDS: OMEPRAZOLE 20 MG CAPSULE PO SCH (08:03)
[2018-12-06] MEDS: CYCLOBENZAPRINE 10 MG TABLET PO SCH (08:03)
[2018-12-06] MEDS: oxyCODONE/APAP 5/325MG TABLET PO PRN (08:03)
[2018-12-06] MEDS: MAGNESIUM HYDROXIDE 30 ML ORAL.SUSP PO PRN (08:03)
[2018-12-06] MEDS: BISACODYL 10 MG SUPP.RECT PR SCH (08:03)
--- NOTE | 2018-12-06 14:21 | Discharge Summary ---
DATE OF ADMISSION: 12/02/2018 DATE OF DISCHARGE: 12/06/2018 ADMISSION DIAGNOSIS: Left renal cell carcinoma. DISCHARGE DIAGNOSIS: Left renal cell carcinoma. PROCEDURE: Left radical nephrectomy. SURGEON: Vahid Holland MD INDICATIONS: The patient is a 68-year-old lady who was noted to have an incidental mass on the left kidney. Biopsy was performed which was consistent with renal cell carcinoma and she presents now for removal. HOSPITAL COURSE: For the rest of the history and physical, please see dictation. Postoperatively, she was observed in the ICU. Her hematocrit was stable and did drift down to 29, but was asymptomatic. She was advanced through her diet and is tolerating a regular diet. Her pain is being controlled with Percocet. She has had a bowel movement. The wound is clean and dry. PLAN: She was discharged to home and we will follow up for staple removal in 2 weeks and she is to resume all her preoperative medications. RZ:dipak Job ID: [id number] Doc ID: [id number] Vahid Holland MD
--- NOTE | 2018-12-07 13:20 | Surgical Pathology Report ---
HISTOLOGY SPECIMEN MICROSCOPIC DIAGNOSIS KIDNEY, LEFT, RADICAL NEPHRECTOMY: -- RENAL CELL CARCINOMA, CLEAR CELL TYPE, WITH THE FOLLOWING FEATURES: - TUMOR SIZE: 4.5 x 3.8 x 3.5 cm. - HISTOLOGIC GRADE: GRADE 3 OF 4. - TUMOR EXTENSION: TUMOR LIMITED TO KIDNEY. - TUMOR NECROSIS: PRESENT, APPROXIMATELY 30% OF TUMOR. - LYMPHOVASCULAR INVASION: NOT IDENTIFIED. - SURGICAL MARGINS: UNINVOLVED BY INVASIVE CARCINOMA. - PATHOLOGIC STAGE: pT1b NX. (RLF:adj) SUMMARY CANCER DATA Procedure: Radical nephrectomy. Specimen Laterality: Left. Tumor Site: Upper pole. Tumor Size: 4.5 x 3.8 x 3.5 cm. Tumor Focality: Unifocal. Histologic Type: Clear cell renal cell carcinoma. Sarcomatoid Features: Not identified. Rhabdoid Features: Not identified. Histologic Grade: Grade 3. Tumor Necrosis: Present, approximately 30% of tumor. Tumor Extension: Tumor limited to kidney. Margins: Uninvolved by invasive carcinoma. Lymphovascular Invasion: Not identified. Lymph Nodes: No lymph nodes submitted or found. Pathologic Stage: pT1b NX MX. PROCEDURAL IMPRESSION Renal cell carcinoma left upper pole of kidney. GROSS DESCRIPTION Received in formalin designated left kidney, is a 498 gram, 20 x 9.5 x 6.5 cm left radical nephrectomy specimen. The nephrectomy specimen has disrupted perinephric fat, which is mostly intact. The surgical margins are inked black. The vascular and ureteral margins are removed and submitted. The kidney itself measures 14 cm (s-i) x 6.5 cm (m-l) x 4.5 cm (a-p). The ureter is 4.3 cm long and up to 1.1 cm in diameter. The specimen is bivalved to reveal an upper pole well-circumscribed and grossly encapsulated raymond-pink lesion with areas of brown-black consistent with necrosis. Necrosis encompasses approximately 30% grossly. The mass measures 4.5 x 3.8 x 3.5 cm. Distance to margins: the mass measures approximately 1 cm to nearest hilar vessel, 2.5 cm to renal sinus and has a pushing border abutting the perinephric fat superiorly. No invasion of the renal hilum, renal sinus or extra-capsular invasion is identified. No hilar lymph nodes are identified. No adrenal gland is identified in the perinephric fat. Warp Dyeing Tender sections are submitted as follows: A1 - vascular and ureteral margins at the hilum; A2 - mass to renal cortex; A3 - mass to nearest approach of renal hilum; A4 - mass to perinephric fat; A5 - leather goods sales representative tumor to hilum; A6 - renal sinus; A7 - additional tumor with possible necrosis; A8 - cortex away from tumor. (EBD:nikko) Electronically Signed by: Kia Foster M.D.
== END 2018-12-06 10:12 | disposition home or self-care (01) | DRG 657 ==
LOC: ICU 07:08 → MEDSUR 12-03 13:51

== ENCOUNTER 2019-02-21 09:44 | Observation (INO) ==
--- NOTE | 2019-02-21 10:11 | Emergency Department Note ---
Neuro HPI - General Chief Complaint: Stroke Symptoms Stated Complaint: slurred speech Time Seen by Provider: 02/21/19 09:51 Source: patient Mode of arrival: wheelchair Limitations: no limitations - History of Present Illness HPI Narrative: This patient has had some intermittent neurological symptoms for the last 3 days. She appears to be okay at this moment. But she has had some intermittent right-sided weakness trouble swallowing speech difficulty. She has never had a stroke before. No history of cardiac disease she does have a history of hyper tension but actually her blood pressure has come down quite a bit and she stopped her lisinopril. She did recently have a nephrectomy for cancer and she thinks that they got all of her cancer. Despite that she has lost quite a bit of weight in the last 6 months. It is not entirely clear why. On Anticoagulants: No - Related Data Home Medications: Home Medications Medication Instructions Recorded Confirmed metronidazole 0.75 % topical cream 1 applic TOPICAL DAILYP PRN 07/28/17 02/21/19 triamcinolone acetonide 0.1 % 1 applic TOPICAL DAILYP PRN g 07/28/17 02/21/19 topical cream cholecalciferol (vitamin D3) 2,000 2,000 unit PO QDAY 12/24/18 02/21/19 unit capsule ferrous sulfate 325 mg (65 mg 325 mg PO QDAY tab 02/03/19 02/21/19 iron) tablet Vitamin B12 1,000 mcg PO DAILY 02/21/19 02/21/19 Previous Rx's Medication Instructions Recorded cyclobenzaprine 10 mg tablet 10 mg PO BID #180 tab 06/14/18 Oxybutynin Chloride [Ditropan] 5 mg PO TID tab 12/06/18 tramadol 50 mg tablet 50 mg PO QID PRN #112 tab 12/20/18 epinephrine 0.3 mg/0.3 mL 0.3 mg IM ONCE #2 each 12/21/18 injection, auto-injector leg brace See Dose Instructions .ROUTE 01/04/19 .MEDSUPPLY #1 each albuterol sulfate HFA 90 2 puff INHALATION Q6HP PRN #18 g 01/24/19 mcg/actuation aerosol inhaler ranitidine 150 mg capsule 150 mg PO QHS #90 cap 02/14/19 prednisone 20 mg tablet 40 mg PO ONCE 5 Days #10 tab MDD 02/16/19 40mg Allergies/Adverse Reactions: Allergies Allergy/AdvReac Type Severity Reaction Status Date / Time codeine Allergy Severe Anaphylaxis Verified 02/21/19 09:48 morphine Allergy Severe Anaphylaxis Verified 02/21/19 09:48 Penicillins Allergy Severe Anaphylaxis Verified 02/21/19 09:48 Sulfa (Sulfonamide AdvReac Mild Diarrhea, Verified 02/21/19 09:48 Antibiotics) vomiting, itching Review of Systems All systems ED: reviewed and negative except as stated. Past Medical History - Past Medical History [facility] Narrative: Medical History (Last Reviewed 02/03/19 @ 10:47 by Maria Esther Leiva MD) Neoplasm of left kidney (Chronic) Right hip pain (Chronic) Esophageal stricture (Chronic) Lumbar radicular pain (Chronic) Thyroid disease (Chronic ~1954) Joint pain (Chronic) Insomnia (Chronic ~1988) Hyperlipidemia (Chronic ~1995) Hypertension, essential (Chronic ~2008) Muscle pain (Chronic ~1997) Lung disorder (Chronic ~2004) Arthritis (Chronic ~1999) Anxiety (Chronic) Acid reflux (Chronic ~2011) Acute infectious diarrhea (Resolved) Colitis (Resolved) Dehydration, moderate (Resolved) Gallbladder problem (Resolved ~2000) Hematochezia (Resolved) Hepatitis A (Resolved ~1976) Past Surgical History (Last Reviewed 02/03/19 @ 10:47 by Maria Esther Leiva MD) History of left radical nephrectomy (Acute) H/O colonoscopy (Chronic ~2008) H/O total knee replacement (Chronic ~2004) History of cholecystectomy (Chronic ~2000) History of esophageal dilatation (Chronic 11/20/17) History of surgery (Chronic ~1987) Hx of tonsillectomy (Chronic ~1958) Family History (Last Reviewed 02/03/19 @ 10:47 by Maria Esther Leiva MD) Mother Arthritis Breast cancer Father Colon cancer Heart attack Grandfather Colon cancer - Social History smoking status: Former smoker Alcohol use: Reports: None Drug use: Reports: none Physical Exam Limitations: no limitations General appearance: alert Head: atraumatic, normocephalic Eye: Present: normal appearance ENT: normal exam Neck: Present: normal inspection Chest: Present: normal inspection Respiratory: Present: normal lung sounds bilaterally Cardiovascular: Present: regular rate, normal rhythm, normal heart sounds Abdominal: Present: soft. Absent: distention, tenderness Neurological: Present: alert Cranial nerves: facial palsy (VII): Normal Motor strength - LUE: 5/5 Motor strength - RUE: 5/5 Psychiatric: Present: normal affect Skin: Present: warm, dry Course Vital Signs Respiratory Rate 18 02/21/19 09:45 Pulse Oximetry (%) 99 02/21/19 09:45 Temperature 98.6 F 02/21/19 19:07 Pulse Rate 84 02/21/19 18:45 Respiratory Rate 18 02/21/19 19:07 Blood Pressure 148/72 02/21/19 19:07 Pulse Oximetry (%) 100 02/21/19 19:07 Neuro Symptoms/Deficit - MDM Narrative Medical decision making narrative: This patient appears to be having TIA symptoms for the last 3 days and will be admitted to the hospital by Dr. Henry. - Lab Data Lab results reviewed: Yes I reviewed the patient's lab results. Result diagrams: 02/21/19 10:03 02/21/19 10:03 Lab Results 02/21/19 02/21/19 02/21/19 Range/Units 10:03 10:03 10:03 WBC 10.0 (4.5-11.0) K/mcL RBC 4.67 (4.00-5.20) M/mcL Hgb 12.0 (12.0-15.0) g/dL Hct 37.8 (36.0-48.0) % POC Hct 38.0 (36.0-48.0) % MCV 81.1 (80.0-100.0) fL MCH 25.8 L (26.0-34.0) pg MCHC 31.8 (31.0-36.0) g/dL RDW 15.4 H (11.5-14.5) % Plt Count 161 (140-440) K/mcL MPV 7.8 (7.4-10.4) fL Gran % 69.6 (38.0-78.0) % Lymph % (Auto) 22.1 (15.5-49.0) % [place] % (Auto) 7.7 (1.0-12.0) % Eos % (Auto) 0.6 (0.0-7.0) % Baso % (Auto) 0 (0.0-2.0) % Gran # 7.0 (1.8-8.0) K/mcL Lymph # (Auto) 2.2 (1.5-4.8) K/mcL [place] # (Auto) 0.8 (0.1-0.9) K/mcL Eos # (Auto) 0.1 (0.0-0.7) K/mcL Baso # (Auto) 0 (0.0-0.3) K/mcL POC PT 11.4 L (11.9-14.5) sec POC INR 1.0 (0.9-1.2) APTT 26 (20-37) sec POC Sodium 140 (133-145) mmol/L Sodium 140 (133-145) mmol/L POC Potassium 3.9 (3.3-5.1) mmol/L Potassium 4.1 (3.3-5.1) mmol/L POC Chloride 105 (96-108) mmol/L Chloride 105 (96-108) mmol/L Carbon Dioxide 24 (22-30) mmol/L POC Total CO2 25 (22-30) mmol/L Anion Gap 11.0 (8-16) POC BUN 28 H (8-23) mg/dl BUN 27 H (8-23) mg/dl Creatinine 1.5 H (0.6-1.1) mg/dl POC Creatinine 1.6 H (0.6-1.1) mg/dl GFR Calculation 35 Glucose 78 (70-105) mg/dL POC Glucose 82 (70-105) mg/dL Hemoglobin A1c (4.0-6.0) % HGB Estim Average Glucose mg/dL Calcium 9.1 (8.6-10.4) mg/dl POC WB Ioniz Calcium 1.22 (1.16-1.32) mmol/L Total Bilirubin 0.2 (0.0-1.0) mg/dL AST 14 (0-37) U/l ALT 15 (0-40) U/l Alkaline Phosphatase 87 (39-117) U/L Troponin T (0-0.03) ng/ml Total Protein 7.5 (5.9-8.4) gm/dL Albumin 3.7 (3.2-5.2) gm/dL Globulin 3.8 H (2.2-3.7) gm/dL Albumin/Globulin Ratio 1.0 (1.0-2.3) Triglycerides (<150) mg/dl Cholesterol (<200) mg/dl LDL Cholesterol, Calc (SEE CHART) mg/dl Non-HDL Cholesterol (LDL TARGET+30) HDL Cholesterol (>40) mg/dl Urine Color Urine Appearance Urine pH (5.0-9.0) Ur Specific [place] (1.000-1.035) Urine Protein (NEG) mg/dL Urine Glucose (UA) (NEG) mg/dL Urine Ketones (NEG) mg/dL Urine Occult Blood (<0.03) mg/dL Urine Nitrate (NEG) Urine Bilirubin (NEG) mg/dL Urine Urobilinogen (NEG) mg/dL Ur Leukocyte Esterase (NEG) /uL Urine RBC (0-1) /hpf Urine WBC (0-4) /hpf Ur Squamous Epith Cells (0-4) /hpf Urine Bacteria (0) /hpf Ur Culture Indicated? 02/21/19 02/21/19 02/21/19 Range/Units 10:03 10:03 11:15 WBC (4.5-11.0) K/mcL RBC (4.00-5.20) M/mcL Hgb (12.0-15.0) g/dL Hct (36.0-48.0) % POC Hct (36.0-48.0) % MCV (80.0-100.0) fL MCH (26.0-34.0) pg MCHC (31.0-36.0) g/dL RDW (11.5-14.5) % Plt Count (140-440) K/mcL MPV (7.4-10.4) fL Gran % (38.0-78.0) % Lymph % (Auto) (15.5-49.0) % [place] % (Auto) (1.0-12.0) % Eos % (Auto) (0.0-7.0) % Baso % (Auto) (0.0-2.0) % Gran # (1.8-8.0) K/mcL Lymph # (Auto) (1.5-4.8) K/mcL [place] # (Auto) (0.1-0.9) K/mcL Eos # (Auto) (0.0-0.7) K/mcL Baso # (Auto) (0.0-0.3) K/mcL POC PT (11.9-14.5) sec POC INR (0.9-1.2) APTT (20-37) sec POC Sodium (133-145) mmol/L Sodium (133-145) mmol/L POC Potassium (3.3-5.1) mmol/L Potassium (3.3-5.1) mmol/L POC Chloride (96-108) mmol/L Chloride (96-108) mmol/L Carbon Dioxide (22-30) mmol/L POC Total CO2 (22-30) mmol/L Anion Gap (8-16) POC BUN (8-23) mg/dl BUN (8-23) mg/dl Creatinine (0.6-1.1) mg/dl POC Creatinine (0.6-1.1) mg/dl GFR Calculation Glucose (70-105) mg/dL POC Glucose (70-105) mg/dL Hemoglobin A1c 5.0 (4.0-6.0) % HGB Estim Average Glucose 97 mg/dL Calcium (8.6-10.4) mg/dl POC WB Ioniz Calcium (1.16-1.32) mmol/L Total Bilirubin (0.0-1.0) mg/dL AST (0-37) U/l ALT (0-40) U/l Alkaline Phosphatase (39-117) U/L Troponin T < 0.01 (0-0.03) ng/ml Total Protein (5.9-8.4) gm/dL Albumin (3.2-5.2) gm/dL Globulin (2.2-3.7) gm/dL Albumin/Globulin Ratio (1.0-2.3) Triglycerides 106 (<150) mg/dl Cholesterol 212 H (<200) mg/dl LDL Cholesterol, Calc 133 H (SEE CHART) mg/dl Non-HDL Cholesterol 154 H (LDL TARGET+30) HDL Cholesterol 58 (>40) mg/dl Urine Color Yellow Urine Appearance Clear Urine pH 5.0 (5.0-9.0) Ur Specific [place] 1.010 (1.000-1.035) Urine Protein Neg (NEG) mg/dL Urine Glucose (UA) Negative (NEG) mg/dL Urine Ketones Neg (NEG) mg/dL Urine Occult Blood 0.03 A (<0.03) mg/dL Urine Nitrate Neg (NEG) Urine Bilirubin Neg (NEG) mg/dL Urine Urobilinogen Neg (NEG) mg/dL Ur Leukocyte Esterase Neg (NEG) /uL Urine RBC < 1 (0-1) /hpf Urine WBC 3 (0-4) /hpf Ur Squamous Epith Cells < 1 (0-4) /hpf Urine Bacteria Mod A (0) /hpf Ur Culture Indicated? Yes 02/21/19 Range/Units 13:40 WBC (4.5-11.0) K/mcL RBC (4.00-5.20) M/mcL Hgb (12.0-15.0) g/dL Hct (36.0-48.0) % POC Hct 35.0 L (36.0-48.0) % MCV (80.0-100.0) fL MCH (26.0-34.0) pg MCHC (31.0-36.0) g/dL RDW (11.5-14.5) % Plt Count (140-440) K/mcL MPV (7.4-10.4) fL Gran % (38.0-78.0) % Lymph % (Auto) (15.5-49.0) % [place] % (Auto) (1.0-12.0) % Eos % (Auto) (0.0-7.0) % Baso % (Auto) (0.0-2.0) % Gran # (1.8-8.0) K/mcL Lymph # (Auto) (1.5-4.8) K/mcL [place] # (Auto) (0.1-0.9) K/mcL Eos # (Auto) (0.0-0.7) K/mcL Baso # (Auto) (0.0-0.3) K/mcL POC PT (11.9-14.5) sec POC INR (0.9-1.2) APTT (20-37) sec POC Sodium 140 (133-145) mmol/L Sodium (133-145) mmol/L POC Potassium 4.1 (3.3-5.1) mmol/L Potassium (3.3-5.1) mmol/L POC Chloride 107 (96-108) mmol/L Chloride (96-108) mmol/L Carbon Dioxide (22-30) mmol/L POC Total CO2 24 (22-30) mmol/L Anion Gap (8-16) POC BUN 27 H (8-23) mg/dl BUN (8-23) mg/dl Creatinine (0.6-1.1) mg/dl POC Creatinine 1.6 H (0.6-1.1) mg/dl GFR Calculation Glucose (70-105) mg/dL POC Glucose 85 (70-105) mg/dL Hemoglobin A1c (4.0-6.0) % HGB Estim Average Glucose mg/dL Calcium (8.6-10.4) mg/dl POC WB Ioniz Calcium 1.20 (1.16-1.32) mmol/L Total Bilirubin (0.0-1.0) mg/dL AST (0-37) U/l ALT (0-40) U/l Alkaline Phosphatase (39-117) U/L Troponin T (0-0.03) ng/ml Total Protein (5.9-8.4) gm/dL Albumin (3.2-5.2) gm/dL Globulin (2.2-3.7) gm/dL Albumin/Globulin Ratio (1.0-2.3) Triglycerides (<150) mg/dl Cholesterol (<200) mg/dl LDL Cholesterol, Calc (SEE CHART) mg/dl Non-HDL Cholesterol (LDL TARGET+30) HDL Cholesterol (>40) mg/dl Urine Color Urine Appearance Urine pH (5.0-9.0) Ur Specific [place] (1.000-1.035) Urine Protein (NEG) mg/dL Urine Glucose (UA) (NEG) mg/dL Urine Ketones (NEG) mg/dL Urine Occult Blood (<0.03) mg/dL Urine Nitrate (NEG) Urine Bilirubin (NEG) mg/dL Urine Urobilinogen (NEG) mg/dL Ur Leukocyte Esterase (NEG) /uL Urine RBC (0-1) /hpf Urine WBC (0-4) /hpf Ur Squamous Epith Cells (0-4) /hpf Urine Bacteria (0) /hpf Ur Culture Indicated? - Radiology Data Radiology results reviewed: Yes I reviewed the patient's radiology results. Disposition Pt seen by CLINICAL INSTRUCTOR/PA only: No Clinical Impression: TIA (transient ischemic attack) Disposition: Xfer As Outpt/Obs ([facility]) Condition: Fair
--- NOTE | 2019-02-21 10:15 | Cat Scan Report ---
History: Acute stroke symptoms with slurred speech, history of renal carcinoma TECHNIQUE: The brain was imaged without contrast at 2.5 mm intervals. FINDINGS: There are patchy areas of decreased attenuation in the centrum semiovale in the frontal and parietal lobes. There are physiologic calcifications in the globus pallidus bilaterally. No acute infarct is detected. There is no hemorrhage or mass effect. Mild frontal and temporal lobe atrophy are noted. The ventricles are normal in size. There is no abnormal extra-axial fluid collection. No metastasis are identified. IMPRESSION: Mild age-related degenerative changes and no acute abnormality is detected. Dr. Guevara was called with results Interpreted and Authenticated by: Dieter Trent 02/21/19
[2019-02-21] MEDS ORDERED: 0.9 % SODIUM CHLORIDE 1,000 ML IV ONE (10:23)
[2019-02-21] MEDS ORDERED: LACTATED RINGERS 1,000 ML IV ONE ×2 (10:23→12:07)
[2019-02-21 11:08] LABS: ALT/SGPT 15 U/l (0-40); Albumin 3.7 gm/dL (3.2-5.2); Alkaline Phosphatase 87 U/L (39-117); Blood Urea Nitrogen 27 mg/dl (8-23)
[2019-02-21 11:29] LABS: Basophils # (Auto) 0 K/mcL (0.0-0.3); Basophils % (Auto) 0 % (0.0-2.0); Eosinophils # (Auto) 0.1 K/mcL (0.0-0.7); Eosinophils % (Auto) 0.6 % (0.0-7.0); Granulocytes % (Auto) 69.6 % (38.0-78.0); Lymphocytes # (Auto) 2.2 K/mcL (1.5-4.8); Lymphocytes % (Auto) 22.1 % (15.5-49.0); Mean Cell Volume 81.1 fL (80.0-100.0); Mean Corpuscular HGB Conc 31.8 g/dL (31.0-36.0); Monocytes # (Auto) 0.8 K/mcL (0.1-0.9); Monocytes % (Auto) 7.7 % (1.0-12.0); Platelet Count 161 K/mcL (140-440); RBC 4.67 M/mcL (4.00-5.20); Red Cell Distribution Width 15.4 % (11.5-14.5)
[2019-02-21 12:04] LABS: Appearance,Urine CLEAR; Bacteria,Urine MOD /hpf (0); Bilirubin,Urine NEG (NEG); Color,Urine YELLOW; Glucose,Urine (UA) NEGATIVE (NEG); Leukocyte Esterase,Urine NEG /uL (NEG); Protein,Urine NEG (NEG); Urine Blood 0.03 mg/dL (<0.03); Urine RBC < 1 /hpf (0-1); Urine Squamous Epithelial Cell < 1 /hpf (0-4); Urine WBC 3 /hpf (0-4); Urobilinogen,Urine NEG (NEG)
[2019-02-21] MEDS ORDERED: LORazepam 2 MG/ML VIAL IV ONE (14:49)
--- NOTE | 2019-02-21 14:49 | Internal Med History&Physical ---
Medical - H&P: HPI Patient information: Note initiated : 02/21/19 at 2:42 pm Service Date, if different from initiated Date: [] Patient: Sharla Villela a 68 y/o F admitted on for slurred speech. Chief Complaint: [] History of present illness: Ms. Villela is a 68 year old F with h/o CKD, RCC s/p nephrectomy, presents to the ER today with complaints of dysphagia/ dysarthria. The patient notes that for the last 3 days she has been experiencing, difficulty in swallowing solid foods, this started on , is intermittent in nature, and she had to use water to get the food down, notes her tongue would not work. It can happen at any time, but thinks could be worse in the evening. Since the patient has noted that she also has dysarthria, finding that she is finding it difficult to talk for a long time, predominantly in the evening however can happen in the morning to depending on how long she talks. She does have a history of diplopia she feels perhaps slightly worse over the last 1 month. She has generalized weakness and altered body, admits to weakness with some activity, she has weakness in the left arm which she does not think is new she has had 3 surgeries done on that side, she denies any sensory loss, denies any focal weakness in her lower extremities. Denies any bowel bladder incontinence. Given the concern for possible TIA the patient was brought to the hospital for further management. On presenting to the hospital today the patient was hemodynamically stable, labs were stable, creatinine is 1.5 which is at baseline troponin negative UA is negative, head CT shows age-related degenerative changes no acute changes EKG is sinus rhythm left axis low voltage and incomplete right bundle branch block. The patient has been admitted to the hospital for further evaluation All systems: reviewed and no additional remarkable complaints except as stated (As per HPI rest negative) Medical - H&P: PMH Medical history: Medical History (Last Reviewed 02/03/19 @ 10:47 by Maria Esther Leiva MD) Neoplasm of left kidney (Chronic) Right hip pain (Chronic) Esophageal stricture (Chronic) Lumbar radicular pain (Chronic) Thyroid disease (Chronic ~1954) Joint pain (Chronic) Insomnia (Chronic ~1988) Hyperlipidemia (Chronic ~1995) Hypertension, essential (Chronic ~2008) Muscle pain (Chronic ~1997) Lung disorder (Chronic ~2004) Arthritis (Chronic ~1999) Anxiety (Chronic) Acid reflux (Chronic ~2011) Acute infectious diarrhea (Resolved) Colitis (Resolved) Dehydration, moderate (Resolved) Gallbladder problem (Resolved ~2000) Hematochezia (Resolved) Hepatitis A (Resolved ~1976) Surgical history: Past Surgical History (Last Reviewed 02/03/19 @ 10:47 by Maria Esther Leiva MD) History of left radical nephrectomy (Acute) H/O colonoscopy (Chronic ~2008) H/O total knee replacement (Chronic ~2004) History of cholecystectomy (Chronic ~2000) History of esophageal dilatation (Chronic 11/20/17) History of surgery (Chronic ~1987) Hx of tonsillectomy (Chronic ~1958) Pertinent family history: Family History (Last Reviewed 02/03/19 @ 10:47 by Maria Esther Leiva MD) Mother Arthritis Breast cancer Father Colon cancer Heart attack Grandfather Colon cancer Medical - H&P: Meds Home Medications Medication Instructions Recorded Confirmed Type metronidazole 0.75 % topical cream 1 applic TOPICAL DAILYP PRN 07/28/17 02/21/19 History triamcinolone acetonide 0.1 % 1 applic TOPICAL DAILYP PRN g 07/28/17 02/21/19 History topical cream cyclobenzaprine 10 mg tablet 10 mg PO BID #180 tab 06/14/18 02/21/19 Rx Oxybutynin Chloride [Ditropan] 5 mg PO TID tab 12/06/18 02/21/19 Rx tramadol 50 mg tablet 50 mg PO QID PRN #112 tab 12/20/18 02/21/19 Rx epinephrine 0.3 mg/0.3 mL 0.3 mg IM ONCE #2 each 12/21/18 02/21/19 Rx injection, auto-injector cholecalciferol (vitamin D3) 2,000 2,000 unit PO QDAY 12/24/18 02/21/19 History unit capsule leg brace See Dose Instructions .ROUTE 01/04/19 01/14/19 Rx .MEDSUPPLY #1 each albuterol sulfate HFA 90 2 puff INHALATION Q6HP PRN #18 g 01/24/19 02/21/19 Rx mcg/actuation aerosol inhaler ferrous sulfate 325 mg (65 mg 325 mg PO QDAY tab 02/03/19 02/21/19 History iron) tablet ranitidine 150 mg capsule 150 mg PO QHS #90 cap 02/14/19 02/21/19 Rx prednisone 20 mg tablet 40 mg PO ONCE 5 Days #10 tab MDD 02/16/19 02/21/19 Rx 40mg Allergies Allergy/AdvReac Type Severity Reaction Status Date / Time codeine Allergy Severe Anaphylaxis Verified 02/21/19 09:48 morphine Allergy Severe Anaphylaxis Verified 02/21/19 09:48 Penicillins Allergy Severe Anaphylaxis Verified 02/21/19 09:48 Sulfa (Sulfonamide AdvReac Mild Diarrhea, Verified 02/21/19 09:48 Antibiotics) vomiting, itching Medical - H&P: Exam - Constitutional Vitals: Pulse Resp BP Pulse Ox 77 14 142/66 99 02/21/19 14:26 02/21/19 14:26 02/21/19 14:26 02/21/19 14:26 Exam: GENERAL: The patient is a well-developed, well-nourished in no apparent distr ess. Is alert and oriented x3. VITAL SIGNS: Reviewed and as noted elsewhere. HEENT: Head is normocephalic and atraumatic. Extraocular muscles are intact. Pupils are equal, round, and reactive to light. Nares appeared normal. Mouth appears any without lesions. Mucous membranes are moist. NECK: Normal to inspection, Supple, No lymphadenopathy or thyromegaly. LUNGS: Air entry equal on both sides, no wheezing, crackles or rhonchi noted. No accessory muscles of respiration HEART: Regular rate and rhythm normal, S1 and S2 heard, no Gallop, S3 or Rub Noted, No Gross murmur heard. ABDOMEN: Soft, nontender, and nondistended. Positive bowel sounds. No hepatosplenomegaly was noted. EXTREMITIES: No cyanosis, clubbing, rash, lesions or edema. NEUROLOGIC: Cranial nerves II through XII are grossly intact. Pupils equally reactive to light, extraocular movements are normal, patient's tongue is midline, no appreciable weakness noted in her eyelids, I did not see any ptosis, her mouth was dry which made it difficult for her to talk according to her however there was no weakness cheek muscles or extraocular muscles. Her strength was 4 x 4 in bilateral upper extremities, and 4 x 4 in bilateral lower extremities, she had normal sensations all throughout her body to light touch, deep tendon reflexes were +1, Babinski was equivocal. PSYCHIATRIC: Normal affect, Normal Mood. Appropriate Behavior. SKIN: No ulceration or wounds noted, No jaundice, No rash noted. Medical - H&P: Reslt - Labs CBC & Chem 7: 02/21/19 10:03 02/21/19 10:03 Labs: Short CBC 02/21/19 Range/Units 10:03 WBC 10.0 (4.5-11.0) K/mcL Hgb 12.0 (12.0-15.0) g/dL Hct 37.8 (36.0-48.0) % Plt Count 161 (140-440) K/mcL BMP 02/21/19 10:03 Sodium 140 Potassium 4.1 Chloride 105 Carbon Dioxide 24 BUN 27 H Creatinine 1.5 H Glucose 78 Calcium 9.1 Cardiac Enzymes 02/21/19 Range/Units 10:03 Troponin T < 0.01 (0-0.03) ng/ml Liver Function 02/21/19 Range/Units 10:03 Total Bilirubin 0.2 (0.0-1.0) mg/dL AST 14 (0-37) U/l ALT 15 (0-40) U/l Alkaline Phosphatase 87 (39-117) U/L Albumin 3.7 (3.2-5.2) gm/dL Urine 02/21/19 Range/Units 11:15 Urine Color Yellow Urine Appearance Clear Urine pH 5.0 (5.0-9.0) Ur Specific [place] 1.010 (1.000-1.035) Urine Protein Neg (NEG) mg/dL Urine Glucose (UA) Negative (NEG) mg/dL Medical - H&P: A/P - Narrative A/P Narrative: A/P Dysarthria/TIA -Patient's clinical history is not clearly suggestive of a TIA like episode, or a strokelike episode. CT head is negative, we will get an MRI of the head, MRA of the head, ultrasound of the carotid arteries [patient has CKD with a creatinine of 1.6 and single kidney] and rule out any vascular etiology for the patient's symptoms. Start the patient on a baby aspirin as well as a statin drug. It is likely that the patient could be having symptoms either from a neuromuscular issue, or just significant dryness of her mouth. I will hold the oxybutynin for now I have also sent serology for myasthenia gravis. Patient will need to follow-up with her regular doctor and neurologist as an outpatient once workup for cva is done. There is no concern at this point for respiratory involvement or aspiration at this time, we will observe for this ([facility]) . Ocular involvement would point away from bulbar issue. I would like to review plan of care with a neurologist on the phone at least once the MRI is available Echocardiogram to be done, patient to be monitored on telemetry. CKD -Stable renal function, avoid nephrotoxic agents. MOrbid obesity, BMI 40 -outpatient management Arthritis -apap, tramadol for pain control HTN/HLD -resume home meds, add statin DVT hep sq Diet cardiac Social History - Social History marital status: other: Children-4 - Tobacco smoking status: Former smoker - Alcohol alcohol intake frequency: a few times a month - Substance use substance use type: does not use
[2019-02-21] MEDS ORDERED: LIDOCAINE 1% 20 ML VIAL SQ ONE (15:46)
[2019-02-21] MEDS ORDERED: ONDANSETRON 4 MG/2 ML VIAL IV PRN (16:05)
[2019-02-21] MEDS ORDERED: traMADol 50 MG TABLET PO PRN (16:05)
[2019-02-21] MEDS ORDERED: NALOXONE HCL 0.4 MG/ML VIAL IV PRN (16:05)
--- NOTE | 2019-02-21 16:14 | Magnetic Resonance Report ---
History: Transient ischemic attack with slurred speech and weakness TECHNIQUE: Intracranial arterial circulation was imaged using 3-D slab [id number]. 3-D reconstructions were created. FINDINGS: The internal carotid arteries are normal in caliber and symmetric. Vertebral arteries are also nearly symmetric and normal. The [place] is normal. The P1 segment of the right posterior cerebral artery is hypoplastic. There is a large patent right posterior communicating artery which supplies most of the blood flow to the distal portion of the right posterior cerebral. This is a developmental variant. Intracranial arterial circulation is otherwise normal. There is no evidence of thrombosis or stenosis. No aneurysm or vascular malformation are present IMPRESSION: Normal intracranial arterial circulation Dr. Henry was called with the results Interpreted and Authenticated by: Dieter Trent 02/21/19
--- NOTE | 2019-02-21 16:22 | Magnetic Resonance Report ---
CLINICAL INFORMATION: Transient ischemic attack with slurred speech and weakness COMPARISON: Head CT on 02/21/19 TECHNIQUE:Sagittal T1 FLAIR, axial T1 FLAIR, T2 FLAIR propeller, T2 propeller, gradient, diffusion, ADC and coronal T2 weighted images were acquired. FINDINGS: The T2 and FLAIR sequences reveal the presence of multiple small scattered high signal lesions in the white matter throughout the frontal and parietal lobes with milder involvement in the posterior temporal and occipital lobes. These have no mass effect or restricted diffusion. No cortical lesion is present and is also subtle mixed signal in the belly of the geoff which has no mass effect. The cerebellum is normal. Physiologic calcifications are present in the globus pallidus and pineal. There is mild generalized atrophy. There is no mass, intracranial hemorrhage or acute infarct. The ventricles are normal in size allowing for the atrophy. There is no abnormal extra-axial fluid collection. There is a moderate amount of fluid or inflammatory material within the left mastoid air cells. Minor bilateral ethmoid sinusitis is also seen. IMPRESSION: Age-related degenerative changes, predominantly involving the frontal and parietal lobes with milder involvement in the [place], occipital and temporal lobes. No infarct or acute intracranial abnormality Moderate left mastoiditis Dr. Hawkins was called with the results Interpreted and Authenticated by: Dieter Trent 02/21/19
[2019-02-21] MEDS: OXYBUTYNIN CHLORIDE 5 MG TABLET PO SCH ×2 (17:49→19:57)
[2019-02-21] MEDS: IPRATROPIUM/ALBUTEROL 3 ML AMPUL.NEB NEB SCH (18:46)
[2019-02-21] MEDS: ATORVASTATIN 20 MG TABLET PO SCH (19:56)
[2019-02-21] MEDS: HEPARIN 5,000 UNIT/ML VIAL SQ SCH (19:56)
[2019-02-21] MEDS: CYCLOBENZAPRINE 10 MG TABLET PO SCH (19:59)
[2019-02-21] MEDS: 0.9 % SODIUM CHLORIDE 10 ML SYRINGE IV SCH (22:00)
[2019-02-22] MEDS: IPRATROPIUM/ALBUTEROL 3 ML AMPUL.NEB NEB SCH ×2 (01:31→08:25)
[2019-02-22 05:58] LABS: Basophils # (Auto) 0 K/mcL (0.0-0.3); Basophils % (Auto) 0.3 % (0.0-2.0); Eosinophils # (Auto) 0 K/mcL (0.0-0.7); Eosinophils % (Auto) 0.2 % (0.0-7.0); Granulocytes % (Auto) 77.1 % (38.0-78.0); Lymphocytes # (Auto) 1.4 K/mcL (1.5-4.8); Lymphocytes % (Auto) 15.5 % (15.5-49.0); Mean Cell Volume 81.4 fL (80.0-100.0); Mean Corpuscular HGB Conc 31.9 g/dL (31.0-36.0); Monocytes # (Auto) 0.6 K/mcL (0.1-0.9); Monocytes % (Auto) 6.9 % (1.0-12.0); Platelet Count 209 K/mcL (140-440); RBC 4.09 M/mcL (4.00-5.20); Red Cell Distribution Width 15.6 % (11.5-14.5)
[2019-02-22] MEDS: 0.9 % SODIUM CHLORIDE 10 ML SYRINGE IV SCH ×3 (06:10→21:12)
[2019-02-22 06:31] LABS: ALT/SGPT 15 U/l (0-40); Albumin 3.2 gm/dL (3.2-5.2); Alkaline Phosphatase 76 U/L (39-117); Bilirubin,Direct < 0.2 mg/dL (0.0-0.3); Blood Urea Nitrogen 25 mg/dl (8-23); Gamma Glutamyl Transpeptidase 8 U/L (5-36); Uric Acid 6.2 mg/dL (2.5-8.0)
--- NOTE | 2019-02-22 07:44 | Ultrasound Report ---
CLINICAL INFORMATION: Transient ischemic attack with slurred speech COMPARISON: None. TECHNIQUE: Carotid arteries were imaged in sagittal and transverse planes using 5 mHz linear probe: Doppler, color, and 2D. FINDINGS: See worksheet by the technologist for velocities in PACS Please correlate with CTA CT Angiography or MRA MR Angiography if surgery is contemplated. There is small amount of mixed plaque in the carotid bifurcations bilaterally. Normal flow velocities are present in the common, internal and external carotids. There is no dissection or ulceration. Antegrade flow is present in both vertebral arteries. IMPRESSION: Mild atherosclerotic disease and no evidence of stenosis or vascular occlusion Interpreted and Authenticated by: Dieter Trent 02/22/19
[2019-02-22] MEDS ORDERED: IPRATROPIUM/ALBUTEROL 3 ML AMPUL.NEB NEB PRN (08:27)
[2019-02-22] MEDS: CYCLOBENZAPRINE 10 MG TABLET PO SCH ×2 (08:54→20:39)
[2019-02-22] MEDS: OXYBUTYNIN CHLORIDE 5 MG TABLET PO SCH ×3 (08:54→20:40)
[2019-02-22] MEDS: FERROUS SULFATE 325 MG TABLET PO SCH (08:54)
[2019-02-22] MEDS ORDERED: ASPIRIN 81 MG TAB.CHEW PO SCH (09:00)
--- NOTE | 2019-02-22 09:24 | Internal Med Progress Note ---
Medical - PN: Subj Patient information: Note initiated : 02/22/19 at 9:22 am Service Date, if different from initiated Date: [] Patient: Sharla Villela a 68 y/o F admitted on 02/21/19 for slurred speech. Chief Complaint: [] Interval history: Ms. Villela is a 68 year old F with h/o CKD, RCC s/p nephrectomy, presents to the ER today with complaints of dysphagia/ dysarthria. The patient notes that for the last 3 days she has been experiencing, difficulty in swallowing solid foods, this started on , is intermittent in nature, and she had to use water to get the food down, notes her tongue would not work. It can happen at any time, but thinks could be worse in the evening. Since the patient has noted that she also has dysarthria, finding that she is finding it difficult to talk for a long time, predominantly in the evening however can happen in the morning to depending on how long she talks. She does have a history of diplopia she feels perhaps slightly worse over the last 1 month. She has generalized weakness and altered body, admits to weakness with some activity, she has weakness in the left arm which she does not think is new she has had 3 surgeries done on that side, she denies any sensory loss, denies any focal weakness in her lower extremities. Denies any bowel bladder incontinence. Given the concern for possible TIA the patient was brought to the hospital for further management. On presenting to the hospital today the patient was hemodynamically stable, labs were stable, creatinine is 1.5 which is at baseline troponin negative UA is negative, head CT shows age-related degenerative changes no acute changes EKG is sinus rhythm left axis low voltage and incomplete right bundle branch block. The patient has been admitted to the hospital for further evaluation 02/22-patient clinically improved. Overnight improvement in facial numbness/swallowing/dysarthria. Denies bowel or bladder incontinence or lower extremity weakness. NIH score 1. MRI brain no evidence of acute CVA/tumor. Differential remains wide with pending tests including myasthenia. No history to suggest recent exposure to botulism, TSH /lumbar puncture studies to rule out MS. Continue telemetry monitoring. Likely discharge in 24 hours if continues to improve clinically with outpatient neurology follow-up - Constitutional Vitals: Vital Signs Temp Pulse Resp BP Pulse Ox 97.4 F 84 16 131/80 100 02/22/19 07:39 02/21/19 18:45 02/22/19 07:39 02/22/19 07:39 02/22/19 07:39 Period Temp Pulse Resp BP Sys/Grace Pulse Ox Last 24 Hr 97.4 F-98.6 F 70-84 13-20 131-165/55-94 95-100 Intake and Output 02/21/19 02/22/19 02/22/19 21:59 05:59 13:59 Intake Total 560 300 240 Output Total 600 250 125 Balance -40 50 115 Weight 270 lb 1 oz Intake & Output: Intake & Output 02/21/19 02/22/19 02/22/19 21:59 05:59 13:59 Intake Total 560 300 240 Output Total 600 250 125 Balance -40 50 115 Weight 270 lb 1 oz Intake: Oral 560 300 240 Output: Void Amount 600 250 125 Other: Meal Dinner Breakfast Percent of Meal Consumed 100% 75% Feeding Ability Independent Independent Urine Appearance Clear Clear Urine Color Bright Yellow Dark Yellow Urine Odor Normal Normal Stool Size Small Stool Color Black Stool Consistency Dry and Hard General appearance: no acute distress Exam: Alert oriented Nonlabored breathing Symmetrical strength and sensation Persistent dysarthria but improved since previous day Medical - PN: Obj Da - Labs CBC & Chem 7: 02/22/19 03:44 02/22/19 03:44 Labs: Abnormal Lab Results 02/22/19 02/22/19 02/21/19 03:44 03:44 13:40 Hgb 10.6 L Hct 33.3 L POC Hct 35.0 L MCH RDW 15.6 H Lymph # (Auto) 1.4 L POC PT POC BUN 27 H BUN 25 H Creatinine 1.4 H POC Creatinine 1.6 H Globulin Triglycerides 188 H Cholesterol LDL Cholesterol, Calc Non-HDL Cholesterol Urine Occult Blood Urine Bacteria 02/21/19 02/21/19 02/21/19 11:15 10:03 10:03 Hgb Hct POC Hct MCH RDW Lymph # (Auto) POC PT POC BUN 28 H BUN 27 H Creatinine 1.5 H POC Creatinine 1.6 H Globulin 3.8 H Triglycerides Cholesterol 212 H LDL Cholesterol, Calc 133 H Non-HDL Cholesterol 154 H Urine Occult Blood 0.03 A Urine Bacteria Mod A 02/21/19 02/21/19 10:03 10:03 Hgb Hct POC Hct MCH 25.8 L RDW 15.4 H Lymph # (Auto) POC PT 11.4 L POC BUN BUN Creatinine POC Creatinine Globulin Triglycerides Cholesterol LDL Cholesterol, Calc Non-HDL Cholesterol Urine Occult Blood Urine Bacteria Meds: Medications Acetaminophen (Tylenol) 650 mg PO Q6HP PRN PRN Reason: PAIN/FEVER > 101 Albuterol/Ipratropium (Duoneb) 3 ml NEB Q6HP PRN PRN Reason: Shortness Of Breath Or Wheezing Aspirin (Ecotrin) 325 mg PO DAILY [facility] Atorvastatin Calcium (Lipitor) 40 mg PO HS [facility] Last Admin: 02/21/19 19:56 Dose: 40 mg Documented by: Cyclobenzaprine HCl (Flexeril) 10 mg PO BID [facility] Last Admin: 02/22/19 08:54 Dose: 10 mg Documented by: Ferrous Sulfate (Ferrous Sulfate) 325 mg PO QDAY [facility] Last Admin: 02/22/19 08:54 Dose: 325 mg Documented by: Heparin Sodium (Porcine) (Heparin) 5,000 unit SQ Q12 [facility] Last Admin: 02/21/19 19:56 Dose: 5,000 unit Documented by: Naloxone HCl (Narcan) 0.1 mg IV Q2MIN PRN PRN Reason: Opiate Reversal Ondansetron HCl (Zofran) 4 mg IV Q4HP PRN PRN Reason: Nausea And Vomiting Oxybutynin Chloride (Ditropan) 5 mg PO TID [facility] Last Admin: 02/22/19 08:54 Dose: 5 mg Documented by: Sodium Chloride (Saline Flush) 10 ml IV Q8 [facility] Last Admin: 02/22/19 06:10 Dose: 10 ml Documented by: Tramadol HCl (Ultram) 50 mg PO QIDP PRN PRN Reason: pain (scale score 4-6) Medical - PN: A/P - Time Spent With Patient Total time spent is greater than 50% in coordination of care (as documented) at patient's floor/unit and/or counseling patient: 25 - 35 minutes (1) Dysarthria Status: Acute Assessment and plan: * Acute onset dysarthria-negative MRI for CVA/mass lesion. Await TSH/lumbar puncture studies/myasthenia serology. * Question TIA continue aspirin 325 mg * History of CAD stable * Morbid obesity with BMI of 40 * History of degenerative joint disease continue tramadol * History of hypertension-restart home meds * Hyperlipidemia continue atorvastatin * DVT prophylaxis heparin * Full code Plan * Await TSH/myasthenia serology/lumbar puncture studies * Aspirin and statin * Neuro follow-up as outpatient Current Visit: Yes Medical - PN: Qual - Stroke Symptom Onset Unknown: Yes - VTE Deep Vein Thrombosis/Pulmonary Embolism Present on Admission: No
[2019-02-22] MEDS: ASPIRIN 325 MG ENTERIC COATED TABLET PO SCH (10:48)
[2019-02-22] MEDS: HEPARIN 5,000 UNIT/ML VIAL SQ SCH ×3 (10:48→20:39)
--- NOTE | 2019-02-22 10:51 | XRay Report ---
HISTORY: New onset slurred speech and difficulty swallowing, evaluate for multiple sclerosis FINDINGS: The procedure and risks were explained and the patient consented. The patient lying prone, skin over the lower back was prepped with Betadine and then anesthetized with 1% lidocaine. Using fluoroscopic guidance a 22-gauge needle was inserted into the spinal canal at the L2-3 level. The opening pressure was 2 cm CSF. 17 cc of clear CSF was removed and sent to the laboratory for analysis. She tolerated the procedure well without complication. 43 seconds of fluoroscopy time was used. IMPRESSION: Successful lumbar puncture removing 17 cc of CSF for analysis. Interpreted and Authenticated by: Dieter Trent 02/22/19
[2019-02-22 12:05] LABS: Glucose,CSF 52 mg/dL (45-75)
[2019-02-22 12:56] LABS: Appearance,CSF CLEAR; Nucleated Cells,CSF 3 /cumm (0-5); Red Blood Cell,CSF 15 /cumm (0-1)
[2019-02-22 13:20] LABS: Lymphocytes,CSF 100 % (40-80); Total Cell Ct,CSF 13
[2019-02-22 14:40] LABS: Appearance,CSF CLEAR; Nucleated Cells,CSF 4 /cumm (0-5); Red Blood Cell,CSF 515 /cumm (0-1)
[2019-02-22] MEDS: ACETAMINOPHEN 325 MG TABLET PO PRN (18:26)
[2019-02-22] MEDS: ATORVASTATIN 20 MG TABLET PO SCH (20:39)
[2019-02-23] MEDS: 0.9 % SODIUM CHLORIDE 10 ML SYRINGE IV SCH (05:22)
[2019-02-23 05:41] LABS: Basophils # (Auto) 0 K/mcL (0.0-0.3); Basophils % (Auto) 0.4 % (0.0-2.0); Eosinophils # (Auto) 0.1 K/mcL (0.0-0.7); Eosinophils % (Auto) 1.9 % (0.0-7.0); Granulocytes % (Auto) 68.2 % (38.0-78.0); Lymphocytes # (Auto) 1.6 K/mcL (1.5-4.8); Lymphocytes % (Auto) 22.3 % (15.5-49.0); Mean Cell Volume 82.1 fL (80.0-100.0); Mean Corpuscular HGB Conc 31.3 g/dL (31.0-36.0); Monocytes # (Auto) 0.5 K/mcL (0.1-0.9); Monocytes % (Auto) 7.2 % (1.0-12.0); Platelet Count 202 K/mcL (140-440); RBC 4.11 M/mcL (4.00-5.20); Red Cell Distribution Width 15.9 % (11.5-14.5)
[2019-02-23 06:03] LABS: ALT/SGPT 12 U/l (0-40); Albumin 3.1 gm/dL (3.2-5.2); Albumin/Globulin Ratio 1.1 (1.0-2.3); Alkaline Phosphatase 78 U/L (39-117); Bilirubin,Direct < 0.2 mg/dL (0.0-0.3); Blood Urea Nitrogen 23 mg/dl (8-23); Gamma Glutamyl Transpeptidase 9 U/L (5-36); Uric Acid 6.9 mg/dL (2.5-8.0)
[2019-02-23] MEDS: ACETAMINOPHEN 325 MG TABLET PO PRN (08:46)
[2019-02-23] MEDS: HEPARIN 5,000 UNIT/ML VIAL SQ SCH (08:46)
[2019-02-23] MEDS: FERROUS SULFATE 325 MG TABLET PO SCH (08:47)
[2019-02-23] MEDS: ASPIRIN 325 MG ENTERIC COATED TABLET PO SCH (08:47)
[2019-02-23] MEDS: OXYBUTYNIN CHLORIDE 5 MG TABLET PO SCH (08:57)
[2019-02-23] MEDS: CYCLOBENZAPRINE 10 MG TABLET PO SCH (08:57)
--- NOTE | 2019-02-23 09:49 | Discharge Summary ---
Medical - DS: Prov Patient information: Note initiated : 02/23/19 at 9:44 am Service Date, if different from initiated Date: [] Patient: Sharla Villela 68 y/o F admitted on 02/21/19 for slurred speech. Chief Complaint: [] Date of admission: 02/21/19 15:45 Discharge date: 02/23/19 Primary care physician: Yovanny Hughes Consults: 02/21/19 Consult to Physician [CONS] Stat Comment: Consulting Provider: Kory Henry Reason For Exam: Physician to Consult Medical - DS: Meds - Discharge Medications Prescriptions: Aspirin [Ecotrin] 325 mg PO DAILY #30 tab.ec Atorvastatin [Lipitor] 40 mg PO HS #30 tab Active and Home Medications: Home Medications metronidazole 0.75 % topical cream 1 applic TOPICAL DAILYP PRN 07/28/17 [History Confirmed 02/21/19 Last Taken 02/14/19 18:00] triamcinolone acetonide 0.1 % topical cream 1 applic TOPICAL DAILYP PRN g 07/28/17 [History Confirmed 02/21/19 Last Taken 02/07/19 08:00] cyclobenzaprine 10 mg tablet 10 mg PO BID #180 tab 06/14/18 [Rx Confirmed 02/21/19 Last Taken 02/21/19 10:00] Oxybutynin Chloride [Ditropan] 5 mg PO TID tab 12/06/18 [Rx Confirmed 02/21/19 Last Taken 02/21/19 10:00] tramadol 50 mg tablet 50 mg PO QID PRN #112 tab 12/20/18 [Rx Confirmed 02/21/19 Last Taken 02/21/19 10:00] epinephrine 0.3 mg/0.3 mL injection, auto-injector 0.3 mg IM ONCE #2 each 12/21/18 [Rx Confirmed 02/21/19 Last Taken Unknown] cholecalciferol (vitamin D3) 2,000 unit capsule 2,000 unit PO QDAY 12/24/18 [History Confirmed 02/21/19 Last Taken 02/21/19 10:00] leg brace See Dose Instructions .ROUTE .MEDSUPPLY #1 each 01/04/19 [Rx Confirmed 01/14/19 Last Taken Unknown] albuterol sulfate HFA 90 mcg/actuation aerosol inhaler 2 puff INHALATION Q6HP PRN #18 g 01/24/19 [Rx Confirmed 02/21/19 Last Taken 02/14/19 18:00] ferrous sulfate 325 mg (65 mg iron) tablet 325 mg PO QDAY tab 02/03/19 [History Confirmed 02/21/19 Last Taken 02/21/19 10:00] ranitidine 150 mg capsule 150 mg PO QHS #90 cap 02/14/19 [Rx Confirmed 02/21/19 Last Taken 02/20/19 20:00] Vitamin B12 1,000 mcg PO DAILY 02/21/19 [History Confirmed 02/21/19 Last Taken 02/21/19 08:00] Aspirin [Ecotrin] 325 mg PO DAILY #30 tab.ec 02/23/19 [Rx Last Taken Unknown] Atorvastatin [Lipitor] 40 mg PO HS #30 tab 02/23/19 [Rx Last Taken Unknown] Medical - DS: Hosp Hospital course: Discharge diagnosis * Acute onset dysarthria-clinically resolved. Negative MRI for CVA/mass lesion. Negative MR angiogram head. TSH unremarkable, LP initial analysis no AC dissociation or elevated protein. Myasthenia/MS serology is pending. No telemetry events. Echocardiogram EF 65% * Question TIA continue aspirin 325 mg. start statin in light of abnormal lipid profile * History of CAD stable, continue statin and aspirin * Morbid obesity with BMI of 40, recommended weight loss * History of degenerative joint disease continue tramadol * History of hypertension -continue home meds * Hyperlipidemia continue atorvastatin Brief hospital course Ms. Vilella is a 68 year old F with h/o CKD, RCC s/p nephrectomy, presents to the ER today with complaints of dysphagia/ dysarthria. The patient notes that for the last 3 days she has been experiencing, difficulty in swallowing solid foods, this started on , is intermittent in nature, and she had to use water to get the food down, notes her tongue would not work. It can happen at any time, but thinks could be worse in the evening. Since the patient has noted that she also has dysarthria, finding that she is finding it difficult to talk for a long time, predominantly in the evening however can happen in the morning to depending on how long she talks. She does have a history of diplopia she feels perhaps slightly worse over the last 1 month. She has generalized weakness and altered body, admits to weakness with some activity, she has weakness in the left arm which she does not think is new she has had 3 surgeries done on that side, she denies any sensory loss, denies any focal weakness in her lower extremities. Denies any bowel bladder incontinence. Given the concern for possible TIA the patient was brought to the hospital for further management. On presenting to the hospital today the patient was hemodynamically stable, labs were stable, creatinine is 1.5 which is at baseline troponin negative UA is negative, head CT shows age-related degenerative changes no acute changes EKG is sinus rhythm left axis low voltage and incomplete right bundle branch block. The patient has been admitted to the hospital for further evaluation 02/22-patient clinically improved. Overnight improvement in facial numbness/swallowing/dysarthria. Denies bowel or bladder incontinence or lower extremity weakness. NIH score 1. MRI brain no evidence of acute CVA/tumor. Differential remains wide with pending tests including myasthenia. No history to suggest recent exposure to botulism, TSH /lumbar puncture studies to rule out MS. Continue telemetry monitoring. Likely discharge in 24 hours if continues to improve clinically with outpatient neurology follow-up 02/23-patient feels at baseline. No overnight events. Oral numbness tingling improved. Extremity weakness and numbness resolved. Minimal dysarthria. Extensive workup so far unremarkable. Myasthenia/MS serology is pending send out and will likely take additional 1 week . Discharge diagnosis: . - Time Spent with Patient Total time spent providing and/or coordinating discharge services: Greater than 30 minutes Medical - DS: Exam - Constitutional Vitals: Vital Signs Temp Resp BP BP BP BP Pulse Ox 02/23/19 08:00 96.8 F L 18 132/55 95 02/23/19 04:00 97.9 F 16 134/64 96 02/23/19 00:00 97.7 F 16 130/74 96 02/22/19 20:00 97.4 F 18 149/52 99 02/22/19 19:23 88 L 02/22/19 15:53 98.4 F 18 127/70 95 02/22/19 12:13 98.8 F 18 121/59 97 Intake and Output 02/22/19 02/23/19 02/23/19 21:59 05:59 13:59 Intake Total 590 50 240 Output Total 550 350 600 Balance 40 -300 -360 Intake: Oral 590 50 240 Output: Void Amount 550 350 600 Other: Meal Dinner Breakfast Percent of Meal Consumed 100% 100% Feeding Ability Assist with Tray Set Up Independent Urine Appearance Clear Clear Cloudy Urine Color Bright Yellow Straw Dark Yellow Urine Odor Normal Normal Weight 259 lb Medical - DS: Data Labs on day of discharge: Labs from last 24 hours 02/23/19 02/23/19 02/22/19 04:12 04:12 13:40 WBC 7.2 RBC 4.11 Hgb 10.5 L Hct 33.7 L MCV 82.1 MCH 25.7 L MCHC 31.3 RDW 15.9 H Plt Count 202 MPV 7.9 Gran % 68.2 Lymph % (Auto) 22.3 Larue % (Auto) 7.2 Eos % (Auto) 1.9 Baso % (Auto) 0.4 Gran # 4.9 Lymph # (Auto) 1.6 Larue # (Auto) 0.5 Eos # (Auto) 0.1 Baso # (Auto) 0 Sodium 139 Potassium 4.5 Chloride 106 Carbon Dioxide 26 Anion Gap 7.0 L BUN 23 Creatinine 1.3 H GFR Calculation 42 Glucose 67 L Uric Acid 6.9 Calcium 8.5 L Phosphorus 3.6 Magnesium 2.1 Total Bilirubin 0.2 Direct Bilirubin < 0.2 GGT 9 AST 10 ALT 12 Alkaline Phosphatase 78 Lactate Dehydrogenase 143 Total Protein 6.0 Albumin 3.1 L Globulin 2.9 Albumin/Globulin Ratio 1.1 Triglycerides 130 TSH CSF Source Tube #1 CSF Appearance Clear CSF Color Colorless CSF RBC 515 H CSF Diff Total Count CSF Total Nucleated Auto 4 CSF Neutrophils CSF Lymphocytes CSF Reactive Lymphs CSF Monocytes CSF Eosinophils % CSF Basophils CSF Macrophages CSF Plasma Cells CSF Diff Comment CSF Glucose CSF Total Protein CSF Myelin Basic Protein Ser Oligoclonal Bands Neuromyelitis Optic IgG 02/22/19 02/22/19 02/22/19 10:47 10:46 03:44 WBC RBC Hgb Hct MCV MCH MCHC RDW Plt Count MPV Gran % Lymph % (Auto) Larue % (Auto) Eos % (Auto) Baso % (Auto) Gran # Lymph # (Auto) Larue # (Auto) Eos # (Auto) Baso # (Auto) Sodium Potassium Chloride Carbon Dioxide Anion Gap BUN Creatinine GFR Calculation Glucose Uric Acid Calcium Phosphorus Magnesium Total Bilirubin Direct Bilirubin GGT AST ALT Alkaline Phosphatase Lactate Dehydrogenase Total Protein Albumin Globulin Albumin/Globulin Ratio Triglycerides TSH 1.00 CSF Source Tube #4 CSF Appearance Clear CSF Color Colorless CSF RBC 15 H CSF Diff Total Count 13 CSF Total Nucleated Auto 3 CSF Neutrophils Not Reportable CSF Lymphocytes 100 H CSF Reactive Lymphs Not Reportable CSF Monocytes Not Reportable CSF Eosinophils % Not Reportable CSF Basophils Not Reportable CSF Macrophages Not Reportable CSF Plasma Cells Not Reportable CSF Diff Comment Not Reportable CSF Glucose 52 CSF Total Protein 44 CSF Myelin Basic Protein Pending Ser Oligoclonal Bands Pending Neuromyelitis Optic IgG Pending Medical - DS: A/P - Patient/Caregiver Discharge Instructions Activity: increase activity as tolerated Diet: Regular Diet Additional Instructions: PCP to follow up on my myasthenia/MS serologies. Please fax a copy to PCP once results are available. Return to ER if worsening neurological changes including unilateral weakness numbness and worsening dysphagia Recommend follow-up with neurologist as outpatient at the earliest possible date available Follow-up PCP in 1 week Continue aspirin and statin as advised Prescriptions: Aspirin [Ecotrin] 325 mg PO DAILY #30 tab.ec Atorvastatin [Lipitor] 40 mg PO HS #30 tab - Problem Maintenance (1) Dysarthria Status: Acute - Follow up Plan Follow up with: Fabienne Kramer PA-C [Physician Oxygen Equipment Aide] - 02/24/19 2:45 pm (Please check in at 2:30 pm) Jorge Clark MD [Physician] - 04/27/19 3:00 pm (Please arrive 15 minutes early.) Disposition: Home, Self-Care Prognosis: Fair Rehab Potential: Fair I certify that the patient requires SNF services: No Overall status at discharge: patient is progressing back to baseline Medical - DS: Qual - VTE Deep Vein Thrombosis/Pulmonary Embolism Present on Admission: No
[2019-02-28 16:26] LABS: Myelin Basic Protein, CSF < 2.0 mcg/L (2.0-4.0)
== END 2019-02-23 10:53 | disposition home or self-care (01) ==
LOC: ICU 09:44 → ED 09:44 → ICU 15:40
PROVIDERS: ADMIT Internal Medicine; ATTEND Internal Medicine